=== PATIENT | male | born 1930 | race Caucasian/White ===

== ENCOUNTER 2016-07-13 10:55 | Emergency (ER) | payer MEDICARE, OTHER ==
[2016-03-30 13:06] VITALS: BMI 38.0
[~2016-07-13 10:55] MED LIST: ATIVAN0.5 MG PO; BAYER CHEWABLE81 MG PO; CALTRATE 600 M600 M1 PO; COREG12.5 MG PO; DEPAKOTE ER500 MG PO; DULCOLAX5 MG PO; GALZIN25 MG; GALZIN25 MG PO; GARLIC1 CAP PO; GLUCOPHAGE500 MG PO; GLUCOTROL ER2.5 MG PO; HCTZ25 MG PO; HYTRIN5 MG PO; IPRAT-ALBUT 0.5-3 ML INH; K-TAB10 MEQ PO; LASIX20 MG PO; LASIX40 MG PO; LOPRESSOR25 MG PO; MAG-OX 400 MG400 MG PO; MUCINEX600 MG PO; NORVASC5 MG PO; OMEPRAZOLE20 M1 PO; PERPHENAZINE2 MG PO; PHENERGAN25 M1 PO; PROTONIX40 MG PO; RESTORIL15 MG PO; SEROQUEL25 MG PO; SYMBICORT 16010.2 GM INH; TRIGLIDE160 MG PO; VIBRAMYCIN 100100 MG PO; VIIBRYD10 MG PO; VITAMIN B-121000 MCG PO; VITAMIN D5000 UNIT PO; XANAX1 MG PO; ZESTORETIC 10/11 TAB; ZESTORETIC 10/11 TAB PO; ZOCOR20 MG PO; ZOLOFT100 MG PO
== END 2016-07-13 13:13 | disposition home or self-care (01) ==
LOC: D.ER 10:55
DX: M54.5 Low back pain (principal); S39.012A Strain of muscle, fascia and tendon of lower back, initial encounter; W18.11XA Fall from or off toilet without subsequent striking against object, initial encounter; Y93.89 Activity, other specified; Y92.121 Bathroom in nursing home as the place of occurrence of the external cause; F32.9 Major depressive disorder, single episode, unspecified; E11.9 Type 2 diabetes mellitus without complications; I10 Essential (primary) hypertension

== ENCOUNTER 2016-10-01 11:38 | Inpatient (IN) | payer MEDICARE, OTHER ==
[~2016-10-01] VITALS: Ht 172.7 cm; Wt 119.0 kg
--- NOTE | 2016-10-01 11:45 | NUR ---
PATIENT ADMITTED FROM [facility] HE HAS BEEN AGGRESSIVE, HE EVEN HIT HIS AND STAFF. HE IS IN A W/C, HE IS DISORGANIZED AND DELUSIONAL. HE HAS POOR SHORT TERM MEMORY RECALL. HE IS ON 2L/M OXYGEN PER N/C. HE DOES HAVE EDEMA IN BILATERAL LOWER LEGS. HE AND HIS SPOUSE SAY HE DOES HAVE THIS EDEMA MOST OF THE TIME AND HE IS ON LASIX. PATIENT IS CONFUSED, HE IS CALLING OUT LOUDLY. HE WEARS GLASSES, HE IS NOT ABLE TO AMBULATE AND HE HAS SAID HE HAS FALLEN 6-7 TIMES.
[2016-10-01 11:54] VITALS: BP 115/77; BMI 39.8
[2016-10-01 12:04] VITALS: BMI 39.8
[2016-10-01] MEDS ORDERED: ASPIRIN325 MG PO (13:01)
[2016-10-01] MEDS ORDERED: ULTRAM50 MG PO (13:02)
[2016-10-01] MEDS ORDERED: DEPAKOTE ER250 MG PO (13:06)
[2016-10-01] MEDS ORDERED: DEPAKOTE ER500 MG PO (13:08)
[2016-10-01] MEDS ORDERED: NUEDEXTA 20-101 EACH PO (13:09)
[2016-10-01] MEDS ORDERED: LIPITOR10 MG PO (13:10)
[2016-10-01] MEDS ORDERED: GALZIN25 MG PO (13:10)
[2016-10-01] MEDS ORDERED: K-TAB10 MEQ PO (13:11)
[2016-10-01] MEDS ORDERED: FLOMAX0.4 MG PO (13:11)
[2016-10-01] MEDS ORDERED: COREG12.5 MG PO (13:12)
[2016-10-01] MEDS ORDERED: MUCUS RELIEF400 MG PO (13:13)
[2016-10-01] MEDS ORDERED: BISACODYL5 MG PO (13:14)
[2016-10-01] MEDS ORDERED: VITAMIN B-12500 MC1 PO (13:15)
[2016-10-01] MEDS ORDERED: VITAMIN D5000 UNIT PO (13:16)
[2016-10-01 13:59] LABS: BASOPHILS 0.5 % (0-2); HEMATOCRIT 36.6 % (42.0-54.0); HEMOGLOBIN 11.6 g/dL (13.5-17.5); IMMATURE GRANULOCYTES 0.2 % (0-5); MCH 31.1 pg (26.0-34.0); MCHC 31.7 g/dL (31.0-37.0); MCV 98.1 fL (80.0-100.0); MEAN PLATELET VOLUME 11.6 fL (7.4-10.4); MONOCYTES 12.8 % (2-11); NEUTROPHILS 55.5 % (40-80); RBC 3.73 10x6/uL (4.20-6.10); RDW 16.1 % (11.5-14.5); WBC 5.5 10x3/uL (4.8-10.8)
[2016-10-01 14:01] LABS: PLATELET COUNT 111 10x3/uL (130-400)
[2016-10-01 14:04] LABS: HEMOGLOBIN A1C 6.3 % (4.8-6.0)
[2016-10-01 14:41] LABS: ANION GAP 14.8 mmol/L (8-16); BILIRUBIN - TOTAL 1.02 mg/dL (0.2-1.3); CALCIUM 8.4 mg/dL (8.5-10.1); CARBON DIOXIDE 28.9 mmol/L (21.0-32.0); CHOL - HDL RATIO 5.1 ratio (2.3-4.9); CREATININE - SERUM 1.7 mg/dL (0.6-1.3); LDL-HDL RATIO 2.7 ratio (1.5-3.5); POTASSIUM - SERUM 3.7 mmol/L (3.5-5.1); PROTEIN - SERUM 7.1 g/dL (6.4-8.2); THYROID STIMULATING HORMONE 6.02 uIU/mL (0.36-3.74); VALPROIC ACID (DEPAKOTE) 43.1 ug/mL (50.0-100.0)
--- NOTE | 2016-10-01 16:58 | NUR ---
PATIENT DOES NOT FOLLOW DIRECTION WELL, HE IS STARING BLANKLY, HE HAS YELLED FOR CEASAR, CESIA OR RACHEL SINCE HE CAME IN TODAY. HE CONTINUES TO TRY TO STAND. 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 PATIENT IS UNSTEADY AND HAS FALLEN MULTIPLE TIMES RECENTLY. PATIENT STOOD AGAIN, MANSI ATTEMPTED TO REDIRECT, PATIENT BECAME AGITATED AND SWUNG AND HIT HER IN THE BREAST, PRN ATIVAN 0.5 MG PO GIVEN NOW. WILL MONITOR.
--- NOTE | 2016-10-01 17:50 | NUR ---
PATIENT IS EATING AND HE IS NOT FOCUSED ON TRYING TO STAND HE IS CALMER AND HAS BEEN SITTING AT THE TABLE WITHOUT INCIDENT.
[2016-10-01 19:54] VITALS: BP 146/99
--- NOTE | 2016-10-01 21:00 | NUR ---
REPORT RECEIVED AND CARE ASSIMED. RESTLESS AND UNCOOPERATIVE WITH CARE. ASSESSMENT COMPLETED PER FLOW SHEET. MEDICATION COMPLIANT CRUSHED IN APPLESAUCE. FALL PRECAUTIONS MAINTAINED. CONTINUE PLAN OF CARE AND MONITOR FOR SAFETY.
--- NOTE | 2016-10-02 01:40 | NUR ---
HALDOL 2 MG PO GIVEN FOR ANXIETY AND AGITATION. YELLING OUT LOUDLY.
--- NOTE | 2016-10-02 04:00 | NUR ---
HAS ATTEMPTED TO GET OUT OF BED UNASSISSTED SEVERAL TIMES TONIGHT. HE TAKES OFF HIS OXYGEN AND GETS SHORT OF BREATH.
[2016-10-02 07:22] LABS: APPEARANCE CLEAR (CLEAR); BILIRUBIN NEGATIVE (NEGATIVE); COLOR YELLOW (YELLOW); GLUCOSE NEGATIVE (NEGATIVE); KETONE NEGATIVE (NEGATIVE); LEUKOCYTE ESTERASE NEGATIVE (NEGATIVE); NITRITE NEGATIVE (NEGATIVE); PROTEIN NEGATIVE (NEGATIVE); UROBILINOGEN NORMAL (NORMAL)
[2016-10-02 07:29] LABS: FOLATE (FOLIC ACID) - SERUM 8.3 ng/mL (>3.0)
[2016-10-02 09:47] VITALS: BP 137/81
[2016-10-02 10:17] LABS: VITAMIN D 25 HYDROXY 68.1 ng/mL (30.0-100.0)
--- NOTE | 2016-10-02 13:37 | PSY ---
PATIENT NAME:CESIA ADAMSON MEDICAL RECORD: [id number] : 34 LOCATION:[facility] ADMISSION DATE: 10/01/16 ACCOUNT: [id number] PSYCHIATRIC EVALUATION DATE OF EVALUATION: 10/01/16 Psychiatric Evaluation IDENTIFYING DATA: The patient is 86 years old and he is admitted to the hospital on a voluntary basis. CHIEF COMPLAINT: Aggression. HISTORY OF PRESENT ILLNESS: The patient is a resident at a local long-term. He was admitted today because of aggression and threatening at the long-term. He has only been here a couple of hours. Unfortunately, the patient is a very poor historian. He says he does not live in a long-term and that he lives in his house in [place], [place]. 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 Apparently, he has been pretty delusional, as well as aggressive at the long-term and they tried to redirect him without success. The patient apparently does have a spouse, although I have not spoken with her. Apparently, she has related information that he has a history of bipolar disorder. He has also been very difficult for the nurses at the long-term to provide him with care, resisting and agitated when they try to do so. PAST MEDICAL HISTORY: Significant for diabetes, gastroesophageal reflux disease, constipation and hyperlipidemia. PAST PSYCHIATRIC HISTORY: Significant for reported history of bipolar disorder, although the details of this are unknown. FAMILY HISTORY: Unknown. 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 I am not sure how or why or when he made his way to [place] and he cannot tell me at this point. He does indicate that he is not a and denies very adamantly that he has ever consumed alcohol or taken drugs. MENTAL STATUS EXAMINATION: The patient is awake, alert and oriented to person only. His mood is anxious. His affect is constricted. Thought processes are circumstantial. Memory, concentration and abstraction abilities are moderately impaired. He denies any current intent to harm himself or others as well as overt psychotic symptoms. ASSETS: Supportive family members. LIABILITIES: Limited insight. 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 AXIS II: None. AXIS III: Diabetes, hypertension and hyperlipidemia. AXIS IV: Moderate stressors. AXIS V: Global assessment of functioning is 30. PLAN: At this time, the patient is admitted to the hospital secondary to aggressive and delusional behavior associated with a dementing illness. He will be comprehensively evaluated and treated with both mood-stabilizing and memory-enhancing medications as deemed appropriate. His long-term prognosis is guarded. TRANSINT:[id number] Voice Confirmation ID: [id number] DOCUMENT ID: [id number] MIREILLE GREWAL MD at 1337 CC: [id number] DICTATION DATE: 10/01/16 1455 SECURITY SPECIALIST: 10/01/16 1555 ADM IN [place] [id number] [place] [id number]
[2016-10-02 13:38] VITALS: BMI 39.6
--- NOTE | 2016-10-02 13:45 | NUR ---
B) PATIENT IS CONFUSED, HE DOES NOT FOLLOW DIRECTION WELL. I) PROVIDE PRESCRIBED MEDS. R) PATIENT IS COMPLIANT WITH MEDS. P) CONTINUE POC.
--- NOTE | 2016-10-02 18:27 | NUR ---
PATIENT IS RESTLESS, NOT REDIRECTABLE, HE HAS HAD DINNER, ICE CREAM, WANTS TO STAND AND WALK AND HE IS UNABLE, PATIENT ADMITS TO BEING ANXIOUS. ATIVAN 0.5 MG PO GIVEN NOW.
--- NOTE | 2016-10-02 19:00 | NUR ---
PATIENT LESS ANXIOUS, HE IS MORE REDIRECTABLE, GETTING SLEEPY.
[2016-10-02 19:30] VITALS: BP 136/76
--- NOTE | 2016-10-03 02:49 | NUR ---
B) Recieved patient in the day room, alert and oriented to self, anxious and restless, I) Administered perscribed medications, monitored for falls and safety, R) Medication compliant, P) Continue plan of care.
--- NOTE | 2016-10-03 06:56 | PN ---
PATIENT:CESIA ADAMSON MEDICAL RECORD: [id number] LOCATION:[facility] ADMISSION DATE: 10/01/16 PROGRESS NOTE DATE OF SERVICE: 10/02/2016 SUBJECTIVE: The patient's case was discussed with staff. He has no new complaint. OBJECTIVE: The patient required p.r.n. medication last night and he has been significantly agitated. He has clear evidence of severe cognitive impairment. ASSESSMENT: No change in diagnoses. PLAN: Current medicines have been reviewed and will be maintained. I am going to change his antipsychotic from Trilafon to Zyprexa because of its use in individuals, who are bipolar. TRANSINT:[id number] Voice Confirmation ID: [id number] DOCUMENT ID: [id number] MIREILLE GREWAL MD at 0656 CC: [id number] DICTATION DATE: 10/02/16 1419 MOLECULAR PATHOLOGIST: 10/02/16 2330 ADM IN [place] [id number] [place] [address]
[2016-10-03 11:50] VITALS: BP 155/107
--- NOTE | 2016-10-03 12:01 | NUR ---
B) PATIENT IS SLEEPY THIS AM, HE HAS BEEN PLEASANT, HE IS CONFUSED, HE HAS NOT SHOWN AGGRESSION, HE HAS NOT SHOWN ANXIETY AT THIS TIME. PATIENT DID GET UP AND WALK WELL WITH P.T. I) PROVIDE PRESCRIBED MEDS. R) PATIENT IS COMPLIANT WITH MEDS. P) CONTINUE POC.
[2016-10-03 19:30] VITALS: BP 128/87
--- NOTE | 2016-10-03 23:16 | NUR ---
B) Recieved patient in the day room alert and oriented to self, wanting to call , wanting to go home, restless, yelling out that he was being held against his will, I) Administered perscribed medications, PRN Ativan 0.5 mg IM and Haldol 2 mg IM given at 2100 for anxiety, monitored for falls and safety, R) Medication compliant, resting quietly now, P) Continue plan of care.
[2016-10-04 07:00] VITALS: BP 123/63
[2016-10-04 09:36] VITALS: Ht 172.7 cm; Wt 119.0 kg
--- NOTE | 2016-10-04 09:38 | NUR ---
ORIENTED TO PERSON ONLY. DEMANDING AT TIMES. REDIRECTED AND REORIENTED NEEDED. NO AGGRESSION NOTED. PT IS ANXIOUS SO COPING SKILL USED TO HELP PT RELAX. PT ABLE TO EXPRESS NEEDS BUT YELLS OUT WHEN HE DOES NOT GET IMMEDIATE ATTENTION. FALL PRECAUTIONS MAINTAINED. MEGHAN PAD IN PLACE. ELEVATED PT LEGS DUE TO EDEMA AND REDNESS. WILL CONTINUE TO MONITOR AND CONTINUE WITH PLAN OF CARE.
[2016-10-04 19:30] VITALS: BP 124/72
--- NOTE | 2016-10-04 20:48 | NUR ---
RECEIVED IN DAYROOM. SITTING IN WHEELCHAIR. O2 AT 2 L/M VIA NC. CALM AND COOPERATIVE WITH CARE AND ASSESSMENTS. CONFUSED. NO SIGNS OF AGGRESSION. REDIRECT AND REORIENT NEEDED. CONTINUES TO SIT IN WHEELCHAIR. CONTINUE PLAN OF CARE
[2016-10-05 07:00] VITALS: BP 162/99
--- NOTE | 2016-10-05 12:13 | NUR ---
Alert and oriented to self only, cooperative with am assessment. Redirected and reoriented as need. Demanding at time and will yell out and attempt to get out of chair if not assisted immediately. [place] pad in chair. Safety maintained. Continue to monitor, continue plan of care.
[2016-10-05 12:30] VITALS: BP 115/72
--- NOTE | 2016-10-05 14:10 | PN ---
PATIENT:CESIA ADAMSON MEDICAL RECORD: [id number] LOCATION:[facility]112 ADMISSION DATE: 10/01/16 PROGRESS NOTE DATE OF SERVICE: 10/03/2016 SUBJECTIVE: The patient's case was discussed with staff. He has no new complaint. OBJECTIVE: The patient is in good behavioral control with limited insight about his condition. He is severely impaired intellectually. ASSESSMENT: No change in diagnoses. PLAN: The patient did sleep better last night. He is certainly a high fall risk and is very unsteady on his feet and despite almost constant redirection to not stand up or try to move about unassisted, he cannot retain the information and is trying to get up. I am going to hold his current medicines as they are clearly having some effect as he did sleep last night, it may be necessary to reduce the dose slightly since he did sleep over 9 hours, but that may be related to the fact that he had not slept well for several days prior. TRANSINT:[id number] Voice Confirmation ID: [id number] DOCUMENT ID: [id number] MIREILLE GREWAL MD at 1410 CC: [id number] DICTATION DATE: 10/03/16 1205 INSIDE SALES COORDINATOR: 10/03/162053 ADM IN [place] [address] [place] [address]
[2016-10-05 19:30] VITALS: BP 148/95
--- NOTE | 2016-10-05 19:41 | NUR ---
RECEEIVED IN DAYROOM. SITTING AT TABLE WITH STAFF AND PEERS. SOCALIZING WITH OTHERS. CONFUSED. WANTING TO LEAVE UNIT. CALM AND COOPERATIVE WITH CARE AND ASSESSMENTS. NO SIGNS OF AGGRESSION. REDIRECT AND REORIENT NEEDED. CONTINUES TO SIT IN CHAIR. CONTINUE PLAN OF CARE
[2016-10-06 07:00] VITALS: BP 151/88
--- NOTE | 2016-10-06 10:20 | NUR ---
Alert and oriented to self only, has no insight to place and situation. Redirect and reorient as need. No evidence of reorientation, patient is demanding at times. No aggression or agitation. No delusions noted. Door alarm in chair. Safety maintained. Continue with plan of care and monitoring.
[2016-10-06] MEDS ORDERED: ZYPREXA5 MG PO (14:20)
[2016-10-06] MEDS ORDERED: NAMENDA5 MG PO (14:20)
--- NOTE | 2016-10-06 14:52 | PN ---
PATIENT:CESIA ADAMSON MEDICAL RECORD: [id number] LOCATION:[facility] ADMISSION DATE: 10/01/16 PROGRESS NOTE DATE OF SERVICE: 10/05/2016 SUBJECTIVE: The patient's case was discussed with staff. He has no new complaint. OBJECTIVE: The patient denies intent to harm himself or others. He generally tolerates his medicines well. ASSESSMENT: No change in diagnoses. PLAN: Current medicines and therapies have been reviewed and will be maintained. Long-term prognosis is guarded. I am going to start the patient on Namenda at a dose of 2.5 mg twice daily. TRANSINT:[id number] Voice Confirmation ID: [id number] DOCUMENT ID: [id number] MIREILLE GREWAL MD at 1452 CC: [id number] DICTATION DATE: 10/05/16 1440 BUILDING TECH: 10/06/16 0154 ADM IN [place] [id number] [place] [address]
[2016-10-06 19:30] VITALS: BP 114/77
--- NOTE | 2016-10-06 19:55 | NUR ---
RECEIVED IN DAYROOM. SITTING IN A CHAIR WITH PEERS AT HIS SIDE. SMILES AT TIMES. IN GOOD SPIRITS. CALM AND COOPERATIVE WITH CARE AND ASSESSMENTS. NO SIGNS OF AGGRESSION. ENCOURAGE TO EXPRESS NEEDS. CONTINUE PLAN OF CARE
[2016-10-07 07:55] VITALS: BP 134/84
--- NOTE | 2016-10-07 16:42 | NUR ---
Received this am, alert and oriented to name only. Calm and cooperative with assessment. Redirect and reorient as need. No evidence of reorientation. No aggression. Safety maintained. Continue plan of care.
--- NOTE | 2016-10-07 17:34 | PN ---
PATIENT:CESIA ADAMSON MEDICAL RECORD: [id number] LOCATION:[facility]112 ADMISSION DATE: 10/01/16 PROGRESS NOTE DATE OF SERVICE: 10/06/2016 SUBJECTIVE: The patient's case was discussed with staff. He has no new complaint. OBJECTIVE: The patient is in good behavioral control with limited insight about his condition. ASSESSMENT: No change in diagnoses. PLAN: Current medicines and therapies have been reviewed and will be maintained. Long-term prognosis is guarded. Brief supportive and educational interventions were made. TRANSINT:[id number] Voice Confirmation ID: [id number] DOCUMENT ID: [id number] MIREILLE GREWAL MD at 1734 CC: [id number] DICTATION DATE: 10/06/[address] CLERK: 10/06/16 2348 ADM IN [place] [id number] [place] [address]
[2016-10-07 20:00] VITALS: BP 148/81
--- NOTE | 2016-10-08 01:22 | NUR ---
B) Recieved patient in the day room, alert and oriented to self, calm and cooperative with care and assessment, I) Administered perscribed medications, monitored for falls and safety, R) Medication compliant. patient had difficulty falling to sleepP) Continue plan of care.
--- NOTE | 2016-10-08 11:03 | NUR ---
ORIENTED TO PERSON ONLY. REDIRECTED NEEDED. PT ON 2 L NC. PT IS DISCHARGING TODAY BACK TO [facility]. DISCHARGE PAPERWORK FAXED TO [facility] AND REPORT CALLED. VSS. FALL PRECAUTIONS MAINTAINED. WILL CONTINUE TO MONITOR AND CONTINUE WITH PLAN OF CARE.
--- NOTE | 2016-10-08 12:00 | NUR ---
REPORT CALLED TO [facility], FAXED D/C ORDER AND MAR, PATIENT LEAVING NOW WITH THEIR FINANCIAL ECONOMIST, O2 TANK AND BELONGINGS ACCOUNTED FOR AND PACKED. PATIENT OFF THE UNIT NOW.
--- NOTE | 2016-10-08 13:50 | PN ---
PATIENT:CESIA ADAMSON MEDICAL RECORD: [id number] LOCATION:[facility] ADMISSION DATE: 10/01/16 PROGRESS NOTE DATE OF SERVICE: 10/07/2016 SUBJECTIVE: The patient's case was discussed with staff. He has no new complaint. OBJECTIVE: The patient is quite confused and at times significantly and seriously agitated. He has limited insight about his situation. ASSESSMENT: No change in diagnoses. PLAN: Current medicines have been reviewed and will be maintained. His long-term prognosis is guarded. I anticipate he can be transitioned out of the hospital soon if this level of improvement is maintained. TRANSINT:[id number] Voice Confirmation ID: [id number] DOCUMENT ID: [id number] MIREILLE GREWAL MD at 1350 CC: [id number] DICTATION DATE: 10/07/16 173 DIRECTOR DAY CARE CENTER: 10/08/16 0236 DIS IN 10/08/16 [facility] [address] [place] [address]
== END 2016-10-08 12:05 | DRG 57 ==
LOC: D.PSYCH 11:38
PROVIDERS: ADMIT Psychiatry & Neurology Psychiatry
DX: G30.1 Alzheimer's disease with late onset (principal); F02.81 Dementia in other diseases classified elsewhere, unspecified severity, with behavioral disturbance; E11.9 Type 2 diabetes mellitus without complications; I11.0 Hypertensive heart disease with heart failure; I50.9 Heart failure, unspecified; E78.5 Hyperlipidemia, unspecified; J44.9 Chronic obstructive pulmonary disease, unspecified; Z86.73 Personal history of transient ischemic attack (TIA), and cerebral infarction without residual deficits; F41.8 Other specified anxiety disorders; I25.10 Atherosclerotic heart disease of native coronary artery without angina pectoris; Z95.5 Presence of coronary angioplasty implant and graft; D64.9 Anemia, unspecified; E03.9 Hypothyroidism, unspecified; N40.0 Benign prostatic hyperplasia without lower urinary tract symptoms; K21.9 Gastro-esophageal reflux disease without esophagitis

== ENCOUNTER 2016-11-07 17:17 | Inpatient (IN) | payer MEDICARE, OTHER ==
[~2016-11-07] VITALS: Ht 172.7 cm; Wt 112.5 kg
[~2016-11-07 17:17] MED LIST changes: -ATIVAN1 MG PO; -CEFTRIAXONE1 G/VIAL IM; -GLIPIZIDE10 MG PO; -IPRAT-ALBUT 0.5-3 ML UPD; -LEVAQUIN500 MG PO; -NORVASC10 MG PO; -OYSCO 500+D TAB1 TAB PO; -POT CL MICRO; -TEMAZEPAM30 MG PO
--- NOTE | 2016-11-07 18:00 | NUR ---
RECEIVED TO ROOM 1123 VIA WHEELCHAIR FROM EMERGENCY DEPT. ACCOMPANIED BY HOSPITAL STAFF ONLY. DX: ALTERED MENTAL STATUS. HIS FED HIM DINNER IN ER AND WILL RETURN TOMMORROW [facility] VISITATIOM. WILL MONITOR FOR SAFETY AND FALL PRECAUTIONS. HE IS CURRENTLY A PATIENT AT [facility], AND HE THREATENED TO HARM HIMSELF SO HE COULD GET OUT OF SNF TODAY. ORACLE DATABASE CONSULTANT SAW HIM STAND UP FROM WHEELCHAIR AND BROKE HIS FALL HE FELL DOWN ON LEFT ARM. HE HAS ONLY A SMALL SKIN TEAR TO LEFT ELBOW, NO BRUISES NOTED. WILL CONTINUE TO MONITOR.
[2016-11-07 19:30] VITALS: BP 148/76
[2016-11-07] MEDS ORDERED: ASPIRIN325 MG PO (20:28)
[2016-11-07] MEDS ORDERED: NORVASC10 MG PO (20:29)
[2016-11-07] MEDS ORDERED: LOPRESSOR25 MG PO (20:29)
[2016-11-07] MEDS ORDERED: GLIPIZIDE10 MG PO (20:30)
[2016-11-07] MEDS ORDERED: TEMAZEPAM30 MG PO (20:33)
[2016-11-07] MEDS ORDERED: POT CL MICRO (20:40)
[2016-11-07] MEDS ORDERED: ATIVAN1 MG PO (20:43)
--- NOTE | 2016-11-07 21:47 | NUR ---
RECEIVED IN BEDRROM. ASSIST TO TRANSFERE TO BED. TOTAL ASSIST TO TRANSFERE. CALM AND COOPERATIVE WITH CARE AND ASSESSMENTS. NO SIGNS OF AGGRESSION. TOOK PM MEDS ORDERED. REDIRECT AND REORIENT NEEDED. RESTING IN BED EYS CLOSED AT THIS TIME. CONTINUE PLAN OF CARE
[2016-11-07] MEDS ORDERED: CEFTRIAXONE1 G/VIAL IM (23:12)
[2016-11-07] MEDS ORDERED: LEVAQUIN500 MG PO (23:14)
[2016-11-07] MEDS ORDERED: ULTRAM50 MG PO (23:17)
[2016-11-07] MEDS ORDERED: IPRAT-ALBUT 0.5-3 ML UPD (23:20)
[2016-11-07] MEDS ORDERED: TRIGLIDE160 MG PO (23:24)
[2016-11-07] MEDS ORDERED: OYSCO 500+D TAB1 TAB PO (23:29)
[2016-11-08 01:19] VITALS: BP 148/76
[2016-11-08 07:00] VITALS: BP 137/101
[2016-11-08 07:22] LABS: CHOL - HDL RATIO 6.6 ratio (2.3-4.9); LDL-HDL RATIO 3.6 ratio (1.5-3.5)
--- NOTE | 2016-11-08 10:00 | NUR ---
B) AWAKE AND ALERT THIS AM. ORIENTED TO PERSON ONLY. CALM AND COOPERATIVE WITH ASSESSMENT. SITTING IN RECLINE AND TRIES TO GET UP UNASSISTED. VSS. I) ADMINISTERED PRESCRIBED MEDICATIONS. REDIRECT AND REORIENT PRN. R) COMPLIANT WITH TAKING MEDS CRUSHED IN APPLESAUCE. MONITOR FOR SAFETY AND FALL PRECAUTIONS. P) WILL CONTIMUE PLAN OF CARE.
[2016-11-08 19:30] VITALS: BP 146/98
--- NOTE | 2016-11-08 20:14 | NUR ---
RECEIVED IN HALLWAY. SITTING IN RECLINING CHAIR. VERY CONFUSED. ATTEMPTS TO STAND WITHOUT ASSIST. CALM AND COOPERATIVE WITH CARE AND ASSESSMENTS. REDIRECT AND REORIENT NEEDED FOR SAFETY. CONTINUES TO REST IN RECLINER AT NURSES STATION. CONTINUE PLAN OF CARE
[2016-11-09 07:00] VITALS: BP 141/101
[2016-11-09 10:00] VITALS: BMI 37.8
--- NOTE | 2016-11-09 15:54 | NUR ---
RECEIVED IN [facility] THIS AM. ORIENTED TO PERSON ONLY. CALM AND COOPERATIVE WITH ASSESSMENT. ADMINISTERED PRESCRIBED MEDS. VSS COMPLIANT WITH TAKING MEDS. REDIRECT AND REORIENT NEEDED. WILL CONTINUE POC.
[2016-11-09 19:50] VITALS: BP 133/48; BP 154/82
--- NOTE | 2016-11-09 21:10 | NUR ---
RECEIVED IN HALLWAY. SITTING IN RECLINER. VERY CONFUSED. CALM AND COOPERATIVE WITH CARE AND ASSESSMENTS. REDIRECT AND REORIENT NEEDED. CONTINUES TO REST IN RECLINER EYES CLOSED. CONTINUE PLAN OF CARE
--- NOTE | 2016-11-09 21:39 | NUR ---
RECEIVED IN HALLWAY. SITTING IN RECLINER. VERY CONFUSED. CALM AND COOPERATIVE WITH CARE AND ASSESSMENTS. REDIRECT AND REORIENT NEEDED. CONTINUES TO REST IN RECLINER WITH EYES CLOSED. CONTINUE PLAN OF CARE
[2016-11-10 07:00] VITALS: BP 165/100
--- NOTE | 2016-11-10 17:00 | NUR ---
SEE ASSESSMENT FLOW SHEET FOR DETAILS.
[2016-11-10 19:50] VITALS: BP 137/95
--- NOTE | 2016-11-10 23:27 | NUR ---
RECEIVED IN HALLWAY. SITTING IN RECLINING CHAIR. VERY CONFUSED. CALM AND COOPERATIVE WITH CARE AND ASSESSMENT. ATTEMPTS TO STAND WITHOUT ASSIST AT TIMES. REDIRECT AND REORIENT NEEDED. RESTING IN RECLINER EYES CLOSED AT THIS TIME. CONTINUE PLAN OF CARE
--- NOTE | 2016-11-11 09:00 | NUR ---
B) rec'd pt in dining room for morning med pass, pt alert, pleasant mood, no aggression noted. I) Meds admin per orders, group therapy provided. R) Med compliant, jesus meds well with no s/s adverse reaction, present for group, cooperative. P) Cont current plan of care including meds and group therapy.
[2016-11-11 10:44] VITALS: BP 139/92
[2016-11-11 14:23] LABS: RAPID PLASMA REAGIN Non Reactive (Non Reactive)
[2016-11-11 19:37] VITALS: BP 115/79
--- NOTE | 2016-11-12 00:58 | NUR ---
B) Recieved patient in the hallway alert and oriented to self, calm and cooperative , no behaviors noted, I) Administered perscribed medications, monitored for safety, R) Medication compliant, friendly and pleasant, P) Continue plan of care.
[2016-11-12 07:47] VITALS: BP 146/75
--- NOTE | 2016-11-12 11:12 | NUR ---
B) PATIENT IS AWAKE AND ALERT, BUT HE IS CONFUSED, HE KNOWS HIS NAME, BUT NOT WHERE HE IS AND HE CONTINUES TO YELL OUT AND SAYS "CALL MY " HE WANTS TO LEAVE OUT OF HERE. I) PROVIDE PRESCRIBED MEDS. R) PATIENT IS COMPLIANT WITH MEDS. HE HAS NOT SHOWN ANY AGGRESSION TODAY. P) CONTINUE POC.
[2016-11-12 15:55] VITALS: Ht 172.7 cm; Wt 112.5 kg
[2016-11-12 19:00] VITALS: BP 140/80
--- NOTE | 2016-11-13 01:22 | NUR ---
B) recieved patient in the day room, alert and oriented to name, very confused and restless at times, frequently tries to stand unassisted, I) Administered perscribed medications, monitored for falls and safety, redirected as needed, R) Medication compliant, restless and not sleepingP) Continue plan of care.
[2016-11-13 08:20] LABS: FOLATE (FOLIC ACID) - SERUM 9.5 ng/mL (>3.0)
[2016-11-13 09:07] VITALS: BP 126/79
--- NOTE | 2016-11-13 10:29 | NUR ---
B) PATIENT IS AWAKE EARLY THIS AM AND THROUGH BREAKFAST. HE DOES KEEP ASKING TO BACK TO BED, BUT HE'LL YELL OUT "I NEED TO GO TO THE BATHROOM" STAFF WILL GO TO TAKE HIM AND HE'LL SAY "NO, I NEED TO GO TO BED" PATIENT CAN STAND WITH STAFF ASSIST. I) PROVIDE PRESCRIBED MEDS. R) PATIENT IS COMPLIANT WITH MEDS AND UNIT MILIEU. P) CONTINUE POC.
--- NOTE | 2016-11-13 11:09 | NUR ---
PATIENT HAS A REDDENED BOTTOM, BEAUDREAUX BUTT PASTE APPLIED AFTER HIS SHOWER AND A TIN MAT APPLIED TO HIS CHAIR.
[2016-11-13 19:30] VITALS: BP 139/76
--- NOTE | 2016-11-14 00:46 | NUR ---
B) Recieved patient in the day room, alert and oriented to self, aware of surroundings, yelling out to 'shut up' to other patients talking in loud voices, I) Administered perscribed medications, monitored for safety, R) Medication compliant, resting quietly in bed now, P) Continue plan of care.
[2016-11-14 08:11] VITALS: BP 148/93
--- NOTE | 2016-11-14 13:42 | NUR ---
B) PATIENT IS AWAKE AND ALERT THIS AM, HE HAD A LOW O2 SAT AND HE WAS PLACED ON 02 AT 2 PER N/C FOR A FEW HOURS, RECHECKED O2 SAT AFTER LUNCH AMD OFF OF O2 HE IS SATTING AT 95%. PATIENT CAN STAND WITH STAFF ASSIST. PATIENT HAS SAID ABOUT EVERY 5 TO 10 MINUTES. "I WANT A SHAVE". PATIENT DID GET A SHAVE. I) PROVIDE PRESCRIBED MEDS. R) PATIENT IS COMPLIANT WITH MEDS AND HE IS REDIRECTABLE AND HE HAS NOT SHOWN ANY AGGRESSION TODAY.
[2016-11-14 19:30] VITALS: BP 128/64
--- NOTE | 2016-11-14 19:33 | NUR ---
RECEIVED IN HALLWAY. OUTSIDE OF NURSES STATION. INTRUSIVE AT TIMES. CALM AND COOPERATIVE WITH CARE AND ASSESSMENTS. REDIRECT AND REOPRIENT NEEDED. RESTING IN BED EYES OPEN AT THIS TIME. CONTINUE PLAN OF CARE
--- NOTE | 2016-11-14 19:37 | NUR ---
RECEIVED IN HALLWAY. SITTING OUTSIDE OF NURSES STATION IN RECLINING CHAIR. RESTLESS IN CHAIR AT TIMES. CALM AND COOPERATIVE WITH CARE AND ASSESSMENTS. VERY CONFUSED. REDIRECT AND REORIENT NEEDED. CONTINUES TO SIT IN RECLINER. CONTINUE PLAN OF CARE
[2016-11-15 07:00] VITALS: BP 153/110
--- NOTE | 2016-11-15 17:41 | NUR ---
B) PATIENT IS CONFUSED, HE KNOWS HIS NAME, BUT NOT THE PLACE OR TIME. PATIENT SAID "ARE WE IN [place]" PATIENT IS WHEEZING A LITTLE, BUT HE DOES HAVE BILATERAL LOWER EDEMA AND DR. BRO ORDERED LASIX 2O MG. I) PROVIDE PRESCRIBED MEDS. R) PATIENT IS COMPLIANT WITH MEDS AND UNIT MILIEU. PATIENT NEEDS STAFF ASSIST TO STAND AND TRANSFER. PATIENT DOES USUALLY LET STAFF KNOW HE NEEDS TO VOID OR HAVE A BM. PATIENTS SPOUSE DID VISIT AND HE SAID HE HAD A NICE VISIT. P) CONTINUE POC.
[2016-11-15 19:30] VITALS: BP 153/101
--- NOTE | 2016-11-15 19:55 | NUR ---
RECEIOVED IN HALLWAY. SITTING IN A RECLINER OUTSIDE OF NURSES STATION. ATTEMPTS TO STAND WITHOUT ASSIST. VERY CONFUSED. CALM AND COOPERATIVE WITH CARE AND ASSESSMENT. REDIRECT AND REORIENT NEEDED. CONTINUES TO REST IN RECLINER. CONTINUE PLAN OF CARE
[2016-11-16 07:00] VITALS: BP 128/95
--- NOTE | 2016-11-16 09:00 | NUR ---
RECEIVED IN HALLWAY SITTING IN RECLINER, RESTING WITH EYES CLOSED. VSS. NO AGGRESSION NOTED. CALM AND COOPERATIVE WITH ASSESSMENT. ADMINISTERED PRESCRIBED MEDS. COMPLIANT WITH TAKING MEDS. CONTINUE POC.
[2016-11-16 19:45] VITALS: BP 139/69
--- NOTE | 2016-11-16 22:06 | NUR ---
RECEIVED IN HALLWAY. SITTING IN RECLINER OUTSIDE OF NURSES STATION. VERY CONFUSED. YELLING OUT. CALM AND COOPERATIVE WITH CARE AND ASSESSMENT. REDIRECT AND REORIENT NEEDED. CONTINUES TO SIT IN RECLINER. CONTINUE PLAN OF CARE
[2016-11-17 06:01] LABS: ANION GAP 12.2 mmol/L (8-16); CALCIUM 8.2 mg/dL (8.5-10.1); CARBON DIOXIDE 27.4 mmol/L (21.0-32.0); CREATININE - SERUM 1.1 mg/dL (0.6-1.3); POTASSIUM - SERUM 3.6 mmol/L (3.5-5.1)
[2016-11-17 08:00] VITALS: BP 145/95
[2016-11-17] MEDS ORDERED: LASIX20 MG PO (11:29)
--- NOTE | 2016-11-17 13:00 | NUR ---
B) AWAKE AND ALERT IN RECLINER THIS AM. CALM AND COOPERATIVE WITH ASSESSMENT. I) ADMINISTERED PRESCRIBED MEDS. VSS. REDIRECT AND REORIENT NEEDED. R) COMPLIANT WITH MEDICATIONS. MONITOR FOR SAFETY AND FALLS. P) WILL CONTINUE CURRENT PLAN OF CARE.
[2016-11-17 19:30] VITALS: BP 118/70
--- NOTE | 2016-11-17 21:35 | NUR ---
RECEIVED IN HALLWAY. SITTIN IN RECLINER OUTSIDE OF NURSES STATION. VERY CONFUSED. COOPERATIVE WITH CARE AND ASSESSMENT. NO SIGNS OF AGGRESSION. REDIRECT AND REORIENT NEEDED. CONTINUES TO REST IN RECLINER. CONTINUE PLAN OF CARE.
[2016-11-18 07:44] VITALS: BP 146/87
--- NOTE | 2016-11-18 09:30 | NUR ---
B) PATIENT IS AWAKE AND ALERT AND ORIENTED TO HIMSELF, HE DOES KNOW HE IS LEAVING TODAY, HE IS HAPPY. PATIENT CAN STAND WITH ASSIST TO TRANSFER. I) PROVIDE PRESCRIBED MEDS. R) PATIENT IS COMPLIANT WITH MEDS, CONTINUE WITH D/C, FAXED D/C ORDER AND MAR TO [facility], CALLED REPORT. P) CONTINUE DISCHARGE.
--- NOTE | 2016-11-18 11:00 | NUR ---
PATIENT'S BELONGINGS PACKED AND ACCOUNTED FOR, PATIENT ASSISTED TO VAN BY STAFF. PATIENT IS D/C'D FROM THE UNIT.
--- NOTE | 2016-11-19 10:33 | PN ---
PATIENT:CESIA ADAMSON MEDICAL RECORD: [id number] LOCATION:[facility] ADMISSION DATE: 11/07/16 PROGRESS NOTE DATE OF SERVICE: 11/17/2016 SUBJECTIVE: No new complaint. OBJECTIVE: The patient is continuing to have fluctuating sleeping patterns, but overall is doing quite well. He has been started on thickened liquids due to difficulty with dysphagia. Otherwise, however, he is doing well. He has not shown any behavioral problems, no combativeness nor aggressiveness. On exam, mood is euthymic. Affect is rather constricted. Speech tends to be terse. Content of thought is negative for psychosis or suicidalities. Sensorium unchanged. ASSESSMENT: No change in diagnosis. PLAN: 1. We will continue all current medications and supportive therapy. 2. Anticipate discharge tomorrow. TRANSINT:[id number] Voice Confirmation ID: [id number] DOCUMENT ID: [id number] GINA HERNANDEZ III, MD at 1033 CC: [id number] DICTATION DATE: 11/17/16 1133 SUSPECT ARTIST: 11/17/168 DIS IN 11/18/16 [facility] [address] [place] [address]
== END 2016-11-18 11:05 | DRG 57 ==
LOC: D.PSYCH 17:17
PROVIDERS: Family Medicine; ADMIT Psychiatry & Neurology Psychiatry
DX: G30.9 Alzheimer's disease, unspecified (principal); F02.81 Dementia in other diseases classified elsewhere, unspecified severity, with behavioral disturbance; F32.9 Major depressive disorder, single episode, unspecified; I11.0 Hypertensive heart disease with heart failure; I50.9 Heart failure, unspecified; I25.10 Atherosclerotic heart disease of native coronary artery without angina pectoris; Z86.73 Personal history of transient ischemic attack (TIA), and cerebral infarction without residual deficits; I48.91 Unspecified atrial fibrillation; J44.9 Chronic obstructive pulmonary disease, unspecified; K21.9 Gastro-esophageal reflux disease without esophagitis; E11.9 Type 2 diabetes mellitus without complications; E78.5 Hyperlipidemia, unspecified

== ENCOUNTER → 2016-11-07 | Emergency (ER) | payer MEDICARE, OTHER ==
[2016-10-04 09:36] VITALS: BMI 39.8
[~2016-11-07] MED LIST changes: +ASPIRIN325 MG PO; +ATIVAN1 MG PO; +BISACODYL5 MG PO; +CEFTRIAXONE1 G/VIAL IM; +DEPAKOTE ER250 MG PO; +FLOMAX0.4 MG PO; +GLIPIZIDE10 MG PO; +IPRAT-ALBUT 0.5-3 ML UPD; +LEVAQUIN500 MG PO; +LIPITOR10 MG PO; +MUCUS RELIEF400 MG PO; +NAMENDA5 MG PO; +NORVASC10 MG PO; +NUEDEXTA 20-101 EACH PO; +OYSCO 500+D TAB1 TAB PO; +POT CL MICRO; +TEMAZEPAM30 MG PO; +ULTRAM50 MG PO; +VITAMIN B-12500 MC1 PO; +ZYPREXA5 MG PO
[2016-11-07 13:43] LABS: BASOPHILS 0.2 % (0-2); EOSINOPHILS 2.1 % (0-7); HEMATOCRIT 38.1 % (42.0-54.0); IMMATURE GRANULOCYTES 0.2 % (0-5); LYMPHOCYTES 22.9 % (15-50); MCH 30.9 pg (26.0-34.0); MCHC 31.5 g/dL (31.0-37.0); MCV 98.2 fL (80.0-100.0); MEAN PLATELET VOLUME 11.3 fL (7.4-10.4); MONOCYTES 16.1 % (2-11); NEUTROPHILS 58.5 % (40-80); PLATELET COUNT 103 10x3/uL (130-400); RBC 3.88 10x6/uL (4.20-6.10); RDW 15.6 % (11.5-14.5); WBC 6.2 10x3/uL (4.8-10.8)
[2016-11-07 13:59] LABS: ALBUMIN 2.9 g/dL (3.4-5.0); ANION GAP 13.5 mmol/L (8-16); BILIRUBIN - TOTAL 0.96 mg/dL (0.2-1.3); CALCIUM 8.9 mg/dL (8.5-10.1); CARBON DIOXIDE 30.9 mmol/L (21.0-32.0); CREATININE - SERUM 1.7 mg/dL (0.6-1.3); MAGNESIUM - SERUM 2.2 mg/dL (1.8-2.4); POTASSIUM - SERUM 3.4 mmol/L (3.5-5.1); PROTEIN - SERUM 7.7 g/dL (6.4-8.2)
[2016-11-07 15:34] LABS: APPEARANCE CLEAR (CLEAR); BILIRUBIN NEGATIVE (NEGATIVE); COLOR YELLOW (YELLOW); GLUCOSE NEGATIVE (NEGATIVE); KETONE NEGATIVE (NEGATIVE); LEUKOCYTE ESTERASE NEGATIVE (NEGATIVE); NITRITE NEGATIVE (NEGATIVE); PROTEIN NEGATIVE (NEGATIVE); UROBILINOGEN NORMAL (NORMAL)
[2016-11-07 15:41] LABS: UDS - AMPHET NEGATIVE QUAL (NEGATIVE); UDS - BARB NEGATIVE QUAL (NEGATIVE); UDS - BENZO NEGATIVE QUAL (NEGATIVE); UDS - COCAINE NEGATIVE QUAL (NEGATIVE); UDS - METH NEGATIVE QUAL (NEGATIVE); UDS - OPIATE NEGATIVE QUAL (NEGATIVE); UDS - PCP NEGATIVE QUAL (NEGATIVE); UDS - THC NEGATIVE QUAL (NEGATIVE)
== END ==
LOC: D.ER 12:08
PROVIDERS: Family Medicine; Physician Assistant Medical
DX: F03.90 Unspecified dementia, unspecified severity, without behavioral disturbance, psychotic disturbance, mood disturbance, and anxiety (principal); E11.9 Type 2 diabetes mellitus without complications; I10 Essential (primary) hypertension; Z95.5 Presence of coronary angioplasty implant and graft

== ENCOUNTER 2016-11-26 21:19 | Inpatient (IN) | payer MEDICARE, OTHER ==
[~2016-11-26] VITALS: Ht 172.7 cm; Wt 80.7 kg
--- NOTE | ~2016-11-26 | CN ---
PATIENT NAME:CESIA ADAMSON MEDICAL RECORD: [id number] : 34 LOCATION:. D.2114 ADMIT DATE: 11/27/16 ACCOUNT: [id number] CONSULTING PHYSICIAN: BETZY BARRAZA MD REFERRING PHYSICIAN: ANGELICA BRO MD DATE OF CONSULTATION: 11/27/2016 Cardiology Consultation DIAGNOSES: 1. Congestive heart failure, chronic systolic dysfunction. 2. Shortness of breath. 3. Fluid overload. 4. Hypertension. 5. Hyperlipidemia. 6. Coronary artery disease. HISTORY OF PRESENT ILLNESS: Mr. Adamson presents with congestive heart failure, shortness of breath symptomatology. He has a history of coronary artery disease, but he has had no anginal symptomatology. He has a known cardiomyopathy, ejection fraction in the 35% range with severe mitral regurgitation. He was recently hospitalized for pneumonia, [facility] where he became more short of breath. He has significant pulmonary edema as well. He is now here for fluid overload state. PHYSICAL EXAMINATION: GENERAL APPEARANCE: Well-nourished, well-developed, appears stated age. Level of distress, comfortable. PSYCHIATRIC: Mental status, alert, normal affect. Orientation, oriented to time, place and person. EYES: Lids and conjunctiva, noninjected. No discharge, no pallor. ENT: Lips, teeth, gums, normal dentition. Oropharynx, no cyanosis, no pallor. NECK: Carotid arteries, bilateral normal upstroke, no bruits, no thrills. JUGULAR VEINS: No jugular venous pressure or distention. CERVICAL LYMPH NODES: Nontender, nonenlarged. THYROID: Not enlarged. Nontender. No nodules. LUNGS: Respiratory effort, unlabored. CHEST: Normal curvature. No thoracic deformity. No chest wall tenderness. Percussion, resonant. Auscultation, clear. No wheezes, no rales, no rhonchi. CARDIOVASCULAR: Precordial exam, nondisplaced. No heaves or pericardial thrills. Rate and rhythm, regular. Heart sounds, normal S1, normal S2. No S3, no gallop, no rub. Systolic murmur, not heard. Diastolic murmur, not heard. EXTREMITIES: No cyanosis, no edema. Peripheral pulses, full and equal in all extremities, except as noted. No bruits appreciated. ABDOMEN: Soft, nondistended. Normal aorta. No bruit. Nontender. No masses. Liver, nontender, no hepatomegaly. Spleen, nontender, no splenomegaly. MUSCULOSKELETAL: No joint tenderness. No joint swelling. No erythema. NEUROLOGICAL: Normal gait, normal strength, normal tone. SKIN: Warm and dry. REVIEW OF SYSTEMS: The patient reports easy bruising but reports no swollen glands. The patient reports no fever, no night sweats, no significant weight gain, no significant weight loss. No significant exercise tolerance. The patient reports no dry eyes, no irritation, no vision change. Patient reports no difficulty hearing and no ear pain. Patient reports no frequent nose bleeds CONSULT REPORT [id number] CROSS,CESIA or nose and sinus problems. Patient reports on arm pain on exertion. No shortness of breath while lying down. No history of heart murmur. Patient reports no cough, no wheezing or coughing up blood. Patient reports no abdominal pain, no vomiting. Normal appetite. No diarrhea and not vomiting blood. No nausea and no constipation. Patient reports no incontinence. No difficulty urinating. No hematuria. No increased frequency. Patient reports no muscle aches. No weakness, no arthralgias, no back pain. No swelling of the extremities. Patient reports no abnormal mole, no jaundice, no rashes. Reports no loss of consciousness. No weakness and no numbness. No seizures, dizziness, or headaches. The patient reports no depression, no sleep disturbance, feeling safe in a relationship and no alcohol abuse. Patient reports on fatigue. Reports no runny nose or sinus pressure. No itching, no hives, and no frequent sneezing. OVERALL IMPRESSION: Congestive heart failure, chronic systolic dysfunction with fluid overload. We will start Lasix 40 mg IV q.8 hours along with dobutamine and hopefully this will clear the heart failure symptomatology. Continue the amlodipine and Coreg that he is on. TRANSINT:[id number] Voice Confirmation ID: [id number] DOCUMENT ID: [id number] BETZY BARRAZA MD CC: [id number] DICTATION DATE: 11/27/16 1126 LOG CUTTER: 11/27/16 1331 ADM IN [facility] [address] [place] [address]
[~2016-11-26 21:19] MED LIST changes: +ATIVAN1 MG PO; +CEFTRIAXONE1 G/VIAL IM; +GLIPIZIDE10 MG PO; +IPRAT-ALBUT 0.5-3 ML UPD; +LEVAQUIN500 MG PO; +NORVASC10 MG PO; +OYSCO 500+D TAB1 TAB PO; +POT CL MICRO; +TEMAZEPAM30 MG PO
[2016-11-26 22:03] LABS: APPEARANCE CLEAR (CLEAR); BILIRUBIN NEGATIVE (NEGATIVE); COLOR ORANGE (YELLOW); GLUCOSE NEGATIVE (NEGATIVE); KETONE NEGATIVE (NEGATIVE); LEUKOCYTE ESTERASE NEGATIVE (NEGATIVE); NITRITE NEGATIVE (NEGATIVE); PROTEIN NEGATIVE (NEGATIVE)
[2016-11-26 22:15] LABS: BASOPHILS 0.4 % (0-2); EOSINOPHILS 1.5 % (0-7); HEMATOCRIT 35.1 % (42.0-54.0); HEMOGLOBIN 11.1 g/dL (13.5-17.5); IMMATURE GRANULOCYTES 0.2 % (0-5); LYMPHOCYTES 31.1 % (15-50); MCH 30.8 pg (26.0-34.0); MCHC 31.6 g/dL (31.0-37.0); MCV 97.5 fL (80.0-100.0); MEAN PLATELET VOLUME 10.6 fL (7.4-10.4); MONOCYTES 14.6 % (2-11); NEUTROPHILS 52.2 % (40-80); PLATELET COUNT 98 10x3/uL (130-400); RDW 16.5 % (11.5-14.5); WBC 4.8 10x3/uL (4.8-10.8)
[2016-11-26 22:36] LABS: PLATELET ESTIMATE DECREASED
[2016-11-26 22:39] LABS: ALBUMIN 2.7 g/dL (3.4-5.0); ANION GAP 12.5 mmol/L (8-16); BILIRUBIN - TOTAL 0.8 mg/dL (0.2-1.3); CALCIUM 8.5 mg/dL (8.5-10.1); CARBON DIOXIDE 28.8 mmol/L (21.0-32.0); CREATININE - SERUM 1.3 mg/dL (0.6-1.3); POTASSIUM - SERUM 4.3 mmol/L (3.5-5.1)
[2016-11-26 22:47] LABS: TROPONIN-I 0.059 ng/mL (0.000-0.060)
[2016-11-27] MEDS ORDERED: NUEDEXTA 20-101 EACH PO (02:21)
[2016-11-27] MEDS ORDERED: ZYPREXA5 MG PO (02:21)
[2016-11-27] MEDS ORDERED: GALZIN25 MG PO (02:21)
[2016-11-27] MEDS ORDERED: NORVASC5 MG PO (02:22)
[2016-11-27] MEDS ORDERED: DEPAKOTE ER250 MG PO (02:22)
[2016-11-27] MEDS ORDERED: FUROSEMIDE40 MG PO (02:23)
[2016-11-27] MEDS ORDERED: PERPHENAZINE4 MG PO (02:23)
[2016-11-27 02:25] VITALS: BP 138/95; BMI 39.9
[2016-11-27 04:00] VITALS: BP 120/71
--- NOTE | 2016-11-27 07:30 | NUR ---
RECEIVED PT IN BED EYES CLOSED RESP UNLABORED NAD NOTED
[2016-11-27 08:44] VITALS: BP 138/93
--- NOTE | 2016-11-27 08:56 | NUR ---
MARISSA CESPEDES APN BEEPED FOR DVT COVERAGE OF PATIENT. AWAITING CALL BACK. PATIENT HAS BILATERAL LOWER EDEMA AND IS A FALL RISK.
--- NOTE | 2016-11-27 08:58 | NUR ---
DR MAGAÑA BEEPED FOR DVT COVERAGE FOR PATIENT. PATIENT HAS BILATERAL LOWER EDEMA AND IS AT RISKS FOR FALLS. AWAITING CALL BACK.
--- NOTE | 2016-11-27 09:04 | NUR ---
SARA MATTHEWS RECEIVED FROM DR MAGAÑA
[2016-11-27 10:45] VITALS: Ht 172.7 cm; Wt 80.7 kg
[2016-11-27 12:04] VITALS: BP 110/43
[2016-11-27 14:28] LABS: % SATURATION 19 % (15-55); IRON 91 ug/dl (35-150); TOTAL IRON BIND CAPACITY 472 ug/dl (260-445); UNSAT IRON BIND CAPACITY 381 ug/dl (150-375)
[2016-11-27 15:41] VITALS: BP 146/80
[2016-11-27 18:33] LABS: HEMOGLOBIN A1C 6.1 % (4.8-6.0)
[2016-11-27 19:00] VITALS: BP 113/74
[2016-11-28] VITALS: BP 104/52
[2016-11-28 04:00] VITALS: BP 126/67
[2016-11-28 08:00] VITALS: BP 129/70
--- NOTE | 2016-11-28 10:01 | NUR ---
TELEMETRY CAF. IV PATENT. BED ALRM ON. WILL CONT. PLAN OF CARE.
[2016-11-28 12:00] VITALS: BP 121/71
[2016-11-28 16:00] VITALS: BP 108/66
[2016-11-28 19:00] VITALS: BP 124/72
--- NOTE | 2016-11-28 19:00 | NUR ---
RECEIVED REPORT AND ASSUMED PT CARE FROM DAY SHIFT NURSE @ THIS TIME.
--- NOTE | 2016-11-28 19:22 | NUR ---
SPOUSE IN ROOM WITH PT, PT YELLING AND C/O FEELING VERY ANXIOUS. PT NORMALLY TAKES AT [facility] ATIVAN 1 MG QID PRN ANXIETY AND THIS HAS NOT BEEN REORDERED. PAGE TO DR BRO FOR FURTHER ORDERS. AWAITING RETURN CALL.
--- NOTE | 2016-11-28 19:56 | NUR ---
NO RETURN CALL FROM DR BRO. PM MEDS GIVEN EARLY INCLUDING SLEEP MED TO ASSIST WITH PT'S ANXIETY. PT'S SPOUSE REMAINS AT THE BEDSIDE. WILL MONITOR.
[2016-11-29 04:00] VITALS: BP 113/59
[2016-11-29 05:58] LABS: BASOPHILS 0.2 % (0-2); EOSINOPHILS 2.3 % (0-7); HEMATOCRIT 35.4 % (42.0-54.0); HEMOGLOBIN 11.3 g/dL (13.5-17.5); LYMPHOCYTES 36.2 % (15-50); MCH 30.7 pg (26.0-34.0); MCHC 31.9 g/dL (31.0-37.0); MCV 96.2 fL (80.0-100.0); MEAN PLATELET VOLUME 10.9 fL (7.4-10.4); MONOCYTES 12.7 % (2-11); NEUTROPHILS 48.6 % (40-80); PLATELET COUNT 97 10x3/uL (130-400); RBC 3.68 10x6/uL (4.20-6.10); RDW 16.2 % (11.5-14.5); WBC 4.8 10x3/uL (4.8-10.8)
[2016-11-29 06:14] LABS: ANION GAP 7.7 mmol/L (8-16); CALCIUM 8.5 mg/dL (8.5-10.1); CARBON DIOXIDE 34.6 mmol/L (21.0-32.0); CREATININE - SERUM 1.3 mg/dL (0.6-1.3); POTASSIUM - SERUM 3.3 mmol/L (3.5-5.1)
[2016-11-29 08:22] VITALS: BP 132/78
[2016-11-29 12:10] VITALS: BP 129/72
[2016-11-29 16:15] VITALS: BP 136/68
--- NOTE | 2016-11-29 19:45 | NUR ---
PT HAS BEEN CLEANED UP X 1 FOR BM AND IS YELLING AND CALLING OUT VARIOUS THINGS SUCH "I CAN'T POOP" AND "I CAN'T WALK". CAF PER TELEMETRY. O2 @ 2L/NC WITH RESPS EVEN/NONLABORED. JÚNIOR PIV WITH DOBUTREX @ 17.9ML/HR. BED ALARM ACTIVATED. SEE SHIFT ASSESSMENT. DOOR TO ROOM OPEN WITH CLOSE SUPERVISION. CPOC.
--- NOTE | 2016-11-29 21:14 | NUR ---
HS MEDS GIVEN. LAB DRAWING FOLLOW UP POTASSIUM LEVEL.
[2016-11-29 22:14] VITALS: BP 120/63
--- NOTE | 2016-11-30 00:28 | NUR ---
RECHECK POTASSIUM LEVEL 3.7 NO FURTHER ACTION REQUIRED.
[2016-11-30 00:45] VITALS: BP 142/74
--- NOTE | 2016-11-30 01:00 | NUR ---
PT INCONTINENT OF BM AND URINE. CARE PROVIDED. SKIN CREAM TO SACRAL/COCCYX/PERIANAL AREA. CARDIZEM DRIP INFUSING. PT NOW YELLING OUT AND IS CONFUSED. CPOC. BED ALARM ACTIVATED.
--- NOTE | 2016-11-30 03:27 | NUR ---
PT BACK TO SLEEPING. BED ALARM ACTIVATED. IV CARDIZEM DRIP INFUSING.
--- NOTE | 2016-11-30 05:13 | NUR ---
PORTABLE CXR AND AM LABS COMPLETED.
[2016-11-30 05:47] LABS: BASOPHILS 0.2 % (0-2); EOSINOPHILS 2.3 % (0-7); HEMATOCRIT 35.9 % (42.0-54.0); HEMOGLOBIN 11.4 g/dL (13.5-17.5); IMMATURE GRANULOCYTES 0.2 % (0-5); LYMPHOCYTES 32.1 % (15-50); MCH 30.6 pg (26.0-34.0); MCHC 31.8 g/dL (31.0-37.0); MCV 96.5 fL (80.0-100.0); MEAN PLATELET VOLUME 11.5 fL (7.4-10.4); MONOCYTES 14.7 % (2-11); NEUTROPHILS 50.5 % (40-80); PLATELET COUNT 85 10x3/uL (130-400); RBC 3.72 10x6/uL (4.20-6.10); RDW 16.1 % (11.5-14.5); WBC 5.3 10x3/uL (4.8-10.8)
[2016-11-30 06:10] LABS: ANION GAP 8.1 mmol/L (8-16); CALCIUM 8.3 mg/dL (8.5-10.1); CARBON DIOXIDE 35.3 mmol/L (21.0-32.0); CREATININE - SERUM 1.4 mg/dL (0.6-1.3); POTASSIUM - SERUM 3.4 mmol/L (3.5-5.1)
--- NOTE | 2016-11-30 07:30 | NUR ---
RECEIVED PT IN BED EYES CLOSED RESP UNLABORED
[2016-11-30 08:00] VITALS: BP 143/81; BP 148/63
[2016-11-30 12:00] VITALS: BP 129/71
[2016-11-30 14:15] LABS: FOLATE (FOLIC ACID) - SERUM 5.9 ng/mL (>3.0)
[2016-11-30 16:00] VITALS: BP 126/62
[2016-11-30 16:51] LABS: ALBUMIN 2.8 g/dL (3.4-5.0); BILIRUBIN - DIRECT 0.43 mg/dL (0.00-0.30); BILIRUBIN - INDIRECT 0.4 mg/dL (0.00-1.00); BILIRUBIN - TOTAL 0.83 mg/dL (0.2-1.3); PROTEIN - SERUM 6.6 g/dL (6.4-8.2)
[2016-11-30 19:00] VITALS: BP 119/78
--- NOTE | 2016-11-30 19:45 | NUR ---
PT ALERT/CONFUSED. JUST LEFT [facility] THE NIGHT AND PT IMMEDIATELY BEGAN TO YELL OUT. ORIENTED PATIENT. HE ASKED IF HE COULD HAVE NERVE MEDICINE AND THIS WILL BE PROVIDED. PIV TO LEFT WRIST WITH DOBUTREX @ 17.9ML/HR (5MCG/MG/MIN) INFUSING. BED ALARM ACTIVATED. SR UP X 2. CALL LIGHT IN REACH. .
--- NOTE | 2016-11-30 21:44 | NUR ---
BEDTIME MEDS GIVEN WITH THICKENED WATER. ALSO GAVE ATIVAN FOR PT'S YELLING OUT AND BEING VERBALLY DISRUPTIVE AND HIS RESTORIL TO PROMOTE SLEEP. PT IS CLEAN/DRY AND URINAL HAS BEEN PLACED BEWTWEEN HIS LEGS FOR FREQUENT URINATION. BED ALARM ACTIVATED.SIDERAILS UP X 2 AND CALL LIGHT IN HAND.
[2016-12-01] VITALS: BP 149/82
--- NOTE | 2016-12-01 03:04 | NUR ---
INTERMITENT SMALL SLEEP PERIODS WITH OCCASSIONAL YELLING OUT AND PULLING ALL THE COVERS OFF HIMSELF AND REMOVING HIS TELEMETRY LEADS. MONITOR AND CPOC. BED ALARM ACTIVATED.
--- NOTE | 2016-12-01 03:59 | NUR ---
COMPLETE BED BATH AND LINEN CHANGE PROVIDED. BED ALARM ACTIVATED. CAF PER TELEMETRY.
[2016-12-01 04:00] VITALS: BP 135/77
[2016-12-01 05:41] LABS: BASOPHILS 0.2 % (0-2); EOSINOPHILS 2.6 % (0-7); HEMATOCRIT 34.7 % (42.0-54.0); HEMOGLOBIN 11.2 g/dL (13.5-17.5); IMMATURE GRANULOCYTES 0.2 % (0-5); LYMPHOCYTES 32.9 % (15-50); MCH 30.9 pg (26.0-34.0); MCHC 32.3 g/dL (31.0-37.0); MCV 95.9 fL (80.0-100.0); MEAN PLATELET VOLUME 11.8 fL (7.4-10.4); MONOCYTES 13.4 % (2-11); NEUTROPHILS 50.7 % (40-80); PLATELET COUNT 82 10x3/uL (130-400); RBC 3.62 10x6/uL (4.20-6.10); RDW 16.1 % (11.5-14.5); WBC 5.1 10x3/uL (4.8-10.8)
[2016-12-01 05:54] LABS: ANION GAP 5.3 mmol/L (8-16); CALCIUM 8.3 mg/dL (8.5-10.1); CARBON DIOXIDE 36.1 mmol/L (21.0-32.0); CREATININE - SERUM 1.4 mg/dL (0.6-1.3); POTASSIUM - SERUM 3.4 mmol/L (3.5-5.1)
[2016-12-01 08:57] VITALS: BP 136/69
[2016-12-01 12:20] VITALS: BP 130/63
--- NOTE | 2016-12-01 13:59 | NUR ---
Patient Name: CESIA ADAMSON Admission Status: ER Accout number: [id number] Admission Date: 11-27-2016 : 1932 Admission Diagnosis:HEART FAILURE, UNSPECIFIED Attending: CARRIE Current LOS: 4 Anticipated DC Date: Planned Disposition: Nursing Facility ROSA Cert Primary Insurance: MEDICARE A & B PLANNED EXTERNAL PROVIDER: [facility], [facility] CARE MEDICAID BED Discharge Planning Comments: * Is the patient Alert and Oriented? No 0 * How many steps to enter\exit or inside your home? NONE 0 * PCP DR. BRO 0 * Pharmacy [facility] 0 * Preadmission Environment [facility] 0 * [facility] * ADLs Partial Dependent 0 * Partial ADLs (Assistance needed) Ambulation Bathing Medication Management Toileting Transfers 0 * Equipment Other 0 * Other Equipment ALL EQUIPMENT PROVIDED BY FACILITY 0 * List name and contact numbers for known caregivers / representatives who currently or will assist patient after discharge: RACHEL ADAMSON, SPOUSE, 0 * Community resources currently utilized None 0 * Please name any agencies selected above. NONE 0 * Additional services required to return to the preadmission environment? No 0 * Can the patient safely return to the preadmission environment? Yes 0 * Has this patient been hospitalized within the prior 30 days at any hospital? No 0 CM MET WITH PT AND SPOUSE IN ROOM TO DISCUSS DISCHARGE PLANNING AND NEEDS, PT SLEEPING, SPOUSE ANSWERED ALL QUESTIONS. PT NOW LIVING AT [facility] WHERE PT'S SPOUSE REPORTS PT IS SAFE AND ALL NEEDS ARE MET. PT'S SPOUSE REPORTS PT WILL RETURN TO [facility] REPA[facility]ER CARE AT [facility] AT DISCHARGE. PT HAS BEEN USING WHEELCHAIR AT THE FACILITY AND SHOULD BE ABLE TO RIDE IN VAN FOR TRANSPORT BACK. IMPORTANT MESSAGE FROM MEDICARE PROVIDED AND EXPLAINED. CM CALLED AND SPOKE TO YVONNE, CLINICAL LIAISON FOR [facility] WHO VERIFIED [facility] CARE STATUS AND THAT THEY WILL ACCEPT PT BACK AT DISCHARGE. FOR DISCHARGE, FAX DISCHARGE INFORMATION TO [facility] AT [phone]. NURSE REPORT TO BE CALLED TO [facility] AT [phone]. [facility] TO ARRANGE VAN TRANSPORT. CM TO CONTINUE TO FOLLOW AND ASSIST NEEDED. Hospitality Internship: Bogdan Odell
[2016-12-01 15:48] VITALS: BP 112/43
[2016-12-01 18:39] LABS: APPEARANCE CLOUDY (CLEAR); BILIRUBIN NEGATIVE (NEGATIVE); COLOR DK YELLOW (YELLOW); GLUCOSE NEGATIVE (NEGATIVE); KETONE NEGATIVE (NEGATIVE); LEUKOCYTE ESTERASE NEGATIVE (NEGATIVE); NITRITE NEGATIVE (NEGATIVE); PROTEIN NEGATIVE (NEGATIVE); UROBILINOGEN NORMAL (NORMAL)
[2016-12-01 18:41] LABS: BACTERIA FEW /hpf (NONE SEEN); RED CELLS - URINE >50 /hpf (0-5)
[2016-12-01 19:00] VITALS: BP 98/53
--- NOTE | 2016-12-01 21:16 | NUR ---
PT ALERT/CONFUSED. YELLING OUT. HAS PULLED OUT HIS IV AND IT WILL HAVE TO BE REPLACED IN ORDER TO INFUSE BUMEX DRIP AND DOBUTREX DRIP. NONLABORED RESPIRATIONS ON ROOM AIR. SEE ASSESSMENT, CPOC.
--- NOTE | 2016-12-02 00:35 | NUR ---
PT HAD PULLED OUT IV, RESITED 22G TO RIGHT HAND AND STARTED BUMEX DRIP AT 10ML/HR + RESTARTED DOBUTAMINE AT 5MCG/KG/MIN (17.9ML/HR). GAVE HS MEDS TO PROMOTE SLEEP, COMFORT AND DECREASE HIS LEVEL OF YELLING/CALLING OUT. WILL MONITOR. BED ALARM ACTIVATED, SR UP X 3.
[2016-12-02 06:23] LABS: BASOPHILS 0.4 % (0-2); EOSINOPHILS 2.5 % (0-7); HEMATOCRIT 35.3 % (42.0-54.0); HEMOGLOBIN 11.4 g/dL (13.5-17.5); IMMATURE GRANULOCYTES 0.2 % (0-5); MCH 30.9 pg (26.0-34.0); MCHC 32.3 g/dL (31.0-37.0); MCV 95.7 fL (80.0-100.0); MEAN PLATELET VOLUME 11.8 fL (7.4-10.4); MONOCYTES 12.5 % (2-11); NEUTROPHILS 51.4 % (40-80); PLATELET COUNT 94 10x3/uL (130-400); RBC 3.69 10x6/uL (4.20-6.10); RDW 16.1 % (11.5-14.5); WBC 5.3 10x3/uL (4.8-10.8)
[2016-12-02 06:40] LABS: ANION GAP 8.6 mmol/L (8-16); CALCIUM 8.3 mg/dL (8.5-10.1); CARBON DIOXIDE 34.4 mmol/L (21.0-32.0); CREATININE - SERUM 1.2 mg/dL (0.6-1.3)
[2016-12-02 08:49] VITALS: BP 139/81
--- NOTE | 2016-12-02 09:42 | NUR ---
TELEMETRY CAF HR 78. IV PATENT. RESP UL ON 02 2L NC. BED ALARM ON. WILL CONT. PLAN OF CARE.
[2016-12-02 11:58] VITALS: BP 120/71
[2016-12-02 16:09] VITALS: BP 126/65
[2016-12-02 20:00] VITALS: BP 128/66
--- NOTE | 2016-12-02 20:13 | NUR ---
RESUMED CARE OF PT, LYING IN BED RESPIRATIONS EVEN AND UNLABORED ON 2LPM VIA NC. 70 CAF ON TELEMETRY. RIGHT HAND INFUSING BUMEX @ 10 AND DOBUTAMINE @ 7.9ML/HR. NO NEEDS VOICED AT THIS TIME, CALL LIGHT IN REACH. WILL CONTINUE TO MONITOR. SEE NURSE ASSESSMENT.
[2016-12-03 01:25] VITALS: BP 104/59
--- NOTE | 2016-12-03 03:59 | NUR ---
PROP MAKING SUPERVISOR AT BEDSIDE TO OBTAIN VITALS, CALL LIGHT IN REACH. WILL CONTINUE WITH PLAN OF CARE.
[2016-12-03 04:12] VITALS: BP 114/67
[2016-12-03 06:03] LABS: BASOPHILS 0.2 % (0-2); EOSINOPHILS 2.3 % (0-7); HEMATOCRIT 38.2 % (42.0-54.0); HEMOGLOBIN 12.3 g/dL (13.5-17.5); LYMPHOCYTES 36.3 % (15-50); MCH 30.7 pg (26.0-34.0); MCHC 32.2 g/dL (31.0-37.0); MCV 95.3 fL (80.0-100.0); MEAN PLATELET VOLUME 11.1 fL (7.4-10.4); MONOCYTES 12.8 % (2-11); NEUTROPHILS 48.4 % (40-80); PLATELET COUNT 87 10x3/uL (130-400); RBC 4.01 10x6/uL (4.20-6.10); RDW 15.9 % (11.5-14.5); WBC 4.8 10x3/uL (4.8-10.8)
[2016-12-03 06:25] LABS: CALCIUM 8.5 mg/dL (8.5-10.1); CARBON DIOXIDE 38.1 mmol/L (21.0-32.0); CREATININE - SERUM 1.3 mg/dL (0.6-1.3); POTASSIUM - SERUM 3.1 mmol/L (3.5-5.1)
[2016-12-03 09:21] VITALS: BP 121/56
--- NOTE | 2016-12-03 09:38 | NUR ---
TELEMETRY CAF. RESP UL ON 2L NC. IV PATENT. CALL LIGHT IN REACH. WILL CONT. PLAN OF CARE.
[2016-12-03 12:50] VITALS: BP 107/60
--- NOTE | 2016-12-03 13:53 | NUR ---
Nutrition follow-up: Diet: Low sodium mechanical soft with nectar thick liquids PO intake ~83% average of last 9 meals Labs reviewed +BM wt: 210# RDN following.
[2016-12-03 16:53] VITALS: BP 122/68
--- NOTE | 2016-12-03 19:31 | NUR ---
RESUMED CARE OF PT, LYING IN BED RESPIRATIONS EVEN AND UNLABORED ON 2LPM VIA NC. 79 CAF ON TELEMETRY. RIGHT HAND INFUSING DOBUTAMINE @ 17.9 AND BUMEX @ 10. CALL LIGHT IN REACH AND BED ALARM ON. WILL CONTINUE TO MONITOR. SEE NURSE ASSESSMENT.
[2016-12-03 21:16] VITALS: BP 103/70
--- NOTE | 2016-12-04 03:10 | NUR ---
BED BATH AND LINENS CHANGED. CALL LIGHT IN REACH. WILL CONTINUE TO MONITOR.
[2016-12-04 04:35] VITALS: BP 122/57
[2016-12-04 05:48] LABS: BASOPHILS 0.2 % (0-2); EOSINOPHILS 2.8 % (0-7); HEMATOCRIT 37.9 % (42.0-54.0); HEMOGLOBIN 12.3 g/dL (13.5-17.5); IMMATURE GRANULOCYTES 0.2 % (0-5); LYMPHOCYTES 37.2 % (15-50); MCHC 32.5 g/dL (31.0-37.0); MCV 95.5 fL (80.0-100.0); MEAN PLATELET VOLUME 11.6 fL (7.4-10.4); MONOCYTES 13.5 % (2-11); NEUTROPHILS 46.1 % (40-80); RBC 3.97 10x6/uL (4.20-6.10); WBC 5.6 10x3/uL (4.8-10.8)
[2016-12-04 05:56] LABS: PLATELET COUNT 105 10x3/uL (130-400)
[2016-12-04 06:11] LABS: ANION GAP 8.3 mmol/L (8-16); CALCIUM 8.7 mg/dL (8.5-10.1); CARBON DIOXIDE 36.8 mmol/L (21.0-32.0); CREATININE - SERUM 1.4 mg/dL (0.6-1.3); POTASSIUM - SERUM 3.1 mmol/L (3.5-5.1)
[2016-12-04 08:00] VITALS: BP 120/64
[2016-12-04 11:52] VITALS: BP 127/64
[2016-12-04 14:44] VITALS: BP 126/78
[2016-12-04 19:00] VITALS: BP 124/59
--- NOTE | 2016-12-04 22:28 | NUR ---
INITIAL ROUNDS COMPLETED AT 1920 HRS. PT YELLING FOR WATER. THICKEN WATER GIVEN. PT INCONTINENT OF STOOL AT 2010 HRS. INCONTINENT CARE DONE. ASSESSMENT COMPLETED AT THAT TIME. IV TO R HAND WITH BUMEX AT 10CC/HR AND DOBUTREX AT 5MCQ/KG/MIN (17/9CC/HR). IV PATENT. O2 2LNC. CAF PER CM HR 81. 1+ PEDAL EDEMA. SCABS NOTED TO L SALDANA. BUTTOCKS RED. LUNGS WITH SCATTERED CRACKLES IN BASES BILAT. PT CONFUSED, ORIENTED TO PERSON ONLY. PM MEDS GIVEN. PT INCONTNENT OF URIE AT 2200 HRS. INCONTINENT CARE DONE. PT CURRENTLY RESTING WITH EYES CLOSED. RESP EVEN AND REGULAR. SR UP X3, CALL LIGHT WITHIN REACH AND BED ALARM ON. DOOR OPEN.
[2016-12-05] VITALS: BP 134/74
--- NOTE | 2016-12-05 00:04 | NUR ---
PT RESTING WITH EYES CLOSED. RESP EVEN AND REGULAR. SR UP X2, CALL LIGHT WITHIN REACH AND BED ALARM ON.
--- NOTE | 2016-12-05 01:52 | NUR ---
PT RESTING WITH EYES CLOSED. RESP EVEN AND REGULAR. SR UP X2, CALL LIGHT WITHIN REACH AND BED ALARM ON.
[2016-12-05 04:00] VITALS: BP 101/59
--- NOTE | 2016-12-05 04:24 | NUR ---
PT RESTING WITH EYES CLOSED. RESP EVEN AND REGULAR. SR UP X2, CALL LIGHT WITHIN REACH AND BED ALARM ON.
--- NOTE | 2016-12-05 05:42 | NUR ---
BED BATH DONE, BED LINENS CAHGED. PT TOLERATED ACTIVITY WELL. PT SLEPT WELL DURING THE NIGHT. NEEDS MET; WILL CONTINUE TO MONITOR.
[2016-12-05 06:34] LABS: CALCIUM 8.6 mg/dL (8.5-10.1); CARBON DIOXIDE 34.4 mmol/L (21.0-32.0); CREATININE - SERUM 1.2 mg/dL (0.6-1.3); POTASSIUM - SERUM 3.4 mmol/L (3.5-5.1)
[2016-12-05 06:40] LABS: BASOPHILS 0.4 % (0-2); EOSINOPHILS 2.8 % (0-7); HEMATOCRIT 37.4 % (42.0-54.0); HEMOGLOBIN 12.1 g/dL (13.5-17.5); IMMATURE GRANULOCYTES 0.2 % (0-5); LYMPHOCYTES 37.9 % (15-50); MCH 30.3 pg (26.0-34.0); MCHC 32.4 g/dL (31.0-37.0); MEAN PLATELET VOLUME 11.5 fL (7.4-10.4); MONOCYTES 12.5 % (2-11); NEUTROPHILS 46.2 % (40-80); PLATELET COUNT 116 10x3/uL (130-400); RDW 15.8 % (11.5-14.5); WBC 5.4 10x3/uL (4.8-10.8)
[2016-12-05 06:42] LABS: MCV 93.5 fL (80.0-100.0)
--- NOTE | 2016-12-05 07:30 | NUR ---
RESTING QUIETLY EYES CLOSED RESP UNLABORED NAD NOTED
[2016-12-05 10:02] VITALS: BP 110/52
[2016-12-05 12:00] VITALS: BP 104/48
--- NOTE | 2016-12-05 19:30 | NUR ---
INITIAL ROUNDS COMPLETED. PT RESTING WITH EYES CLOSED. RESP EVEN AND REGULAR. SR UP X2, CALL LIGHT WITHIN REACH.
--- NOTE | 2016-12-05 20:26 | NUR ---
PT INCONTINENT OF STOOL AT 1935 HRS. INCONTNENT CARE DONE. ASESSMENT COMPLETED AT THAT TIME. IV TO R HAND WITH BUMEX AT 10CC/HR AND DOBUTREX AT 17.9CC/HR ( 5MCQ/KG/MIN). IV PATENT. O2 2LNC LUNGS DIMINISHED IN BASES BILAT. CAF PER CM HR 78. BUTT AND SCROTUM RED. WILL CONTINUE TO MONITOR. SR UP X2, CALL LIGHT WITHIN REACH AND BED ALARM ON.
[2016-12-05 20:39] VITALS: BP 117/69
--- NOTE | 2016-12-05 22:38 | NUR ---
PT RESTING WITH EYES CLOSED. RESP EVEN AND REGULAR. SR UP X2, CALL LIGHT WITHIN REACH AND BED ALARM ON.
--- NOTE | 2016-12-05 23:47 | NUR ---
PT AWAKE. URINAL EMPTIED OF 200CC. THICKENED LIQUID GIVNE PER REQUEST. WILL CONTINUE TO MONITOR. SR UP X2, CALL LIGHT WITHIN REACH AND BED ALARM ON.
[2016-12-06] VITALS: BP 123/63
--- NOTE | 2016-12-06 02:23 | NUR ---
PT RESTING WITH EYES CLOSED. RESP EVEN AND REGULAR. SR UP X2, CALL LIGHT WITHIN REACH AND BED ALARM ON.
[2016-12-06 04:00] VITALS: BP 110/53
--- NOTE | 2016-12-06 04:47 | NUR ---
PT YELLING OUT. NECTAR THICK WATER GIVEN PER REQUEST. REPOSITIONED IN BED FOR COMFORT. WILL CONTINUE TO MONITOR.
--- NOTE | 2016-12-06 06:05 | NUR ---
NO CHANGE IN STATUS DURING SHIFT. PT INCONTINENT OF STOOL AND URINE. PT SLEPT FOR A FEW HOURS WITH RESTORIL. AM BATH IN PROGRESS. NEEDS MET; WILL CONTINUE TO MONITOR.
[2016-12-06 07:02] LABS: ANION GAP 8.1 mmol/L (8-16); CALCIUM 8.5 mg/dL (8.5-10.1); CARBON DIOXIDE 35.6 mmol/L (21.0-32.0); CREATININE - SERUM 1.3 mg/dL (0.6-1.3)
[2016-12-06 07:04] LABS: POTASSIUM - SERUM 2.7 mmol/L (3.5-5.1)
--- NOTE | 2016-12-06 07:14 | NUR ---
RECEIVED PT IN BED EYES CLOSED RESP UNLABORED SKIN W/D COLOR WNL NAD NOTED
[2016-12-06 09:46] VITALS: BP 100/51
[2016-12-06 12:26] VITALS: BP 111/70
[2016-12-06 16:06] VITALS: BP 106/54
--- NOTE | 2016-12-06 19:31 | NUR ---
INITIAL ROUNDS COMPLETED. PT YELLING OUT "HELP ME HELP ME!". WHEN ENTERING ROOM PT ASKING FOR MILK. THICKEN MILK GIVEN. WILL CONTINUE TO MONITOR.
[2016-12-06 20:56] VITALS: BP 111/57
--- NOTE | 2016-12-06 21:14 | NUR ---
K+3.3. KCL 40 MEQ IN 240CC OF THICKEN APPLEJUICE GIVEN PER ELECTROLYTE PROTOCOL. PM MEDS GIVEN. PT REPOSITIOED IN BED FOR COMFORT. WILL CONTINUE TO MONITOR. SR UP X2, CALL LIGHT WITHIN REACH AND BED ALARM ON.
--- NOTE | 2016-12-06 22:29 | NUR ---
PT YELLING OUT. NO DISTRESS NOTED. WILL CONTINUE TO MONITOR.
[2016-12-07 00:20] VITALS: BP 115/61
--- NOTE | 2016-12-07 00:46 | NUR ---
ATIVAN 0.5MG PO GIVEN FOR AGITATION. REPOSITIONED IN BED FOR COMFORT. WILL CONTINUE TO MONITOR.
--- NOTE | 2016-12-07 02:20 | NUR ---
PT RESTING WITH EYES CLOSED. RESP EVEN AND REGULAR. SR UP X2, CALL LIGHT WITHIN REACH AND BED ALARM ON.
--- NOTE | 2016-12-07 03:56 | NUR ---
PT REPOSITIONED IN BED FOR COMFORT. WILL CONTINUE TO MONITOR.
--- NOTE | 2016-12-07 05:55 | NUR ---
VSS THROUGHOUT NIGHT. CAF PER CM. PT VERY ANXIOUS TO GO HOME. NEEDS MET; WILL CONTINUE TO MONITOR.
[2016-12-07 06:13] VITALS: BP 121/65
[2016-12-07 06:16] LABS: ANION GAP 9.3 mmol/L (8-16); CALCIUM 8.5 mg/dL (8.5-10.1); CARBON DIOXIDE 34.7 mmol/L (21.0-32.0); CREATININE - SERUM 1.3 mg/dL (0.6-1.3)
[2016-12-07 08:14] VITALS: BP 117/66
--- NOTE | 2016-12-07 10:05 | NUR ---
INCONTURINE. BATH GIVEN BY EVENT LIGHTING SPECIALIST. IV PATENT. TELEMETRY CAF. WILL CONT. PLAN OF CARE.
[2016-12-07 12:12] VITALS: BP 143/74
[2016-12-07 16:54] VITALS: BP 118/67
[2016-12-07 19:30] VITALS: BP 109/63
--- NOTE | 2016-12-07 20:00 | NUR ---
RESTING IN BED. ALERT/SOME INTERMITENT CONFUSION. YELLING OUT FOR NO REASON. SALINE LOCK TO RIGHT HAND. KEEPS URINAL BETWEEN LEGS FOR FREQUENT URINATION. BED ALARM ACTIVATED. SEE SHIFT ASSESSMENT. CPOC.
[2016-12-08 01:36] VITALS: BP 105/82
--- NOTE | 2016-12-08 02:50 | NUR ---
CONTINUES TO CALL OUT, ENOCHM VERBALIZATIONS/YELLING. WILL BE QUIET FOR A SHORT TIME ATER NURSE/E COMMERCE MERCHANDISING COORDINATOR'S TALK TO HIM AND THEN GO BACK TO YELLING.
[2016-12-08 05:29] VITALS: BP 99/59
[2016-12-08 06:31] LABS: ANION GAP 10.8 mmol/L (8-16); CALCIUM 8.8 mg/dL (8.5-10.1); CARBON DIOXIDE 33.5 mmol/L (21.0-32.0); CREATININE - SERUM 1.3 mg/dL (0.6-1.3); POTASSIUM - SERUM 3.3 mmol/L (3.5-5.1)
[2016-12-08 08:21] VITALS: BP 100/54
--- NOTE | 2016-12-08 10:52 | NUR ---
TELEMETRY CAF. AT BS. WILL MONITOR NEEDS.
[2016-12-08 12:54] VITALS: BP 90/47
--- NOTE | 2016-12-08 14:30 | NUR ---
RD follow up note, Pt eating well. N n/v consuming 75-100% of AHA mechanical soft diet with nectar thick liquids. BM on 12/06. wt has decreased significantly while in hosppital likely influenced by fluid. Noted per MD note on 12/07 pt had dana leg edema up to thigh and abd. labs reviewed Elvated bun and creat. dx of renal disease. Meds Bumetanide, Kcl, nystatin, levothyroxine. Last weight documented 12/08 177. Adequate oral intake, diet appropriate, wt change related to fluid. No changees at this time. Will continue to follow and provide recommendations as needed.
[2016-12-08] MEDS ORDERED: BUMEX 1 MG TAB1 MG PO (14:47)
[2016-12-08] MEDS ORDERED: LEVOTHYROXINE100 MC1 IV (14:52)
[2016-12-08] MEDS ORDERED: K-DUR20 MEQ PO (14:57)
[2016-12-08] MEDS ORDERED: SYNTHROID100 MCG PO (15:55)
--- NOTE | 2016-12-08 16:05 | NUR ---
Patient Name: CESIA ADAMSON Admission Status: ER Accout number: [id number] Admission Date: 11-27-2016 : 1932 Admission Diagnosis:HEART FAILURE, UNSPECIFIED Attending: CARRIE Current LOS: 11 Anticipated DC Date: 12-08-2016 Planned Disposition: Nursing Facility [facility] Cert Primary Insurance: MEDICARE A & B PLANNED EXTERNAL PROVIDER: LIYA RARDEN, INTERVENTIONAL RADIOLOGY TECHNOLOGIST [employer] MEDICAID BED Discharge Planning Comments: CM WAS ADVISED THAT PT HAD DISCHARGE ORDERS, SHE HAS CONTACTED THE FACILITY AND PROVIDED NURSE REPORT ALREADY. PT'S SPOUSE HAS BEEN NOTIFIED OF DISCHARGE. CM NOTIFIED YVONNE, CLINICAL LIAISON FOR [facility], OF PT'S DISCHARGE TODAY. CM FAXED DISCHARGE INFORMATION TO [facility] AT [phone]. PT AND SPOUSE NOTIFIED IN ROOM, PT'S SPOUSE IN AGREEMENT WITH DISCHARGE PLAN, IMPORTANT MESSAGE FROM MEDICARE PROVIDED AND EXPLAINED. [facility] TO ARRANGE VAN TRANSPORT. Communications Equipment Operator: Bogdan Odell
--- NOTE | 2016-12-08 16:36 | NUR ---
IV AND TELEMETRY DCD. [facility] BY [facility].
== END 2016-12-08 16:38 | DRG 291 ==
LOC: D.ER 21:19 → D.M2 11-27 01:21
PROVIDERS: Family Medicine; ADMIT Family Medicine
DX: I13.0 Hypertensive heart and chronic kidney disease with heart failure and stage 1 through stage 4 chronic kidney disease, or unspecified chronic kidney disease (principal); I50.23 Acute on chronic systolic (congestive) heart failure; F02.81 Dementia in other diseases classified elsewhere, unspecified severity, with behavioral disturbance; J98.11 Atelectasis; B37.89 Other sites of candidiasis; N18.9 Chronic kidney disease, unspecified; E11.22 Type 2 diabetes mellitus with diabetic chronic kidney disease; I25.10 Atherosclerotic heart disease of native coronary artery without angina pectoris; J44.9 Chronic obstructive pulmonary disease, unspecified; E78.5 Hyperlipidemia, unspecified; G30.9 Alzheimer's disease, unspecified; E03.9 Hypothyroidism, unspecified; D63.8 Anemia in other chronic diseases classified elsewhere; R26.9 Unspecified abnormalities of gait and mobility; I48.2 Chronic atrial fibrillation; F32.9 Major depressive disorder, single episode, unspecified; F41.9 Anxiety disorder, unspecified; K21.9 Gastro-esophageal reflux disease without esophagitis; E87.6 Hypokalemia; K64.9 Unspecified hemorrhoids; Z86.73 Personal history of transient ischemic attack (TIA), and cerebral infarction without residual deficits

== ENCOUNTER 2017-02-14 19:08 | Inpatient (IN) | payer MEDICARE, OTHER ==
[~2017-02-14 19:08] MED LIST changes: +BUMEX 1 MG TAB1 MG PO; +FUROSEMIDE40 MG PO; +K-DUR20 MEQ PO; +LEVOTHYROXINE100 MC1 IV; +PERPHENAZINE4 MG PO; +SYNTHROID100 MCG PO
[2017-02-14 20:02] LABS: BASOPHILS 0.2 % (0-2); EOSINOPHILS 1.9 % (0-7); HEMATOCRIT 34.7 % (42.0-54.0); HEMOGLOBIN 11.2 g/dL (13.5-17.5); IMMATURE GRANULOCYTES 0.2 % (0-5); LYMPHOCYTES 30.4 % (15-50); MCH 31.5 pg (26.0-34.0); MCHC 32.3 g/dL (31.0-37.0); MCV 97.7 fL (80.0-100.0); MONOCYTES 11.8 % (2-11); NEUTROPHILS 55.5 % (40-80); RBC 3.55 10x6/uL (4.20-6.10); RDW 19.6 % (11.5-14.5); WBC 4.2 10x3/uL (4.8-10.8)
[2017-02-14 20:05] LABS: PLATELET COUNT 36 10x3/uL (130-400)
[2017-02-14 20:24] LABS: PLATELET ESTIMATE DECREASED
[2017-02-14 20:36] LABS: ALBUMIN 2.6 g/dL (3.4-5.0); ANION GAP 9.6 mmol/L (8-16); BILIRUBIN - TOTAL 1.26 mg/dL (0.2-1.3); CALCIUM 8.7 mg/dL (8.5-10.1); CARBON DIOXIDE 32.2 mmol/L (21.0-32.0); MAGNESIUM - SERUM 2.4 mg/dL (1.8-2.4); POTASSIUM - SERUM 3.8 mmol/L (3.5-5.1); PROTEIN - SERUM 7.1 g/dL (6.4-8.2); TROPONIN-I 0.047 ng/mL (0.000-0.060)
--- NOTE | 2017-02-14 22:25 | NUR ---
REPORT RECEIVED FROM RUBINA MEYER. ADMITTED PT FROM ER. PT ABLE TO FOLLOW COMMANDS AT TIMES. SPEECH IS GARBLED. ORIENTED TO PERSON AND PLACE. RACHEL ADAMSON WITH HIM. TELEMETRY MONITORING HR 0F 57 HE IS ON DOBUTAMINE DRIP AT 5 MCG/KG/MIN HR FLATUATES BETWEEN 50'S TO 60'S. HE IS ON 2 L O2 VIA NC. BREATHING PATTERN IS SHALLOW. TEMP IS 95.4 F. WARM BLANKETS APPLIED. WILL CONTINUE TO MONITOR. SEE FLOW SHEET FOR COMPLETE ADMISSION ASSESMENT. CALL LIGHT REACH. BED IN LOWEST POSITION.
--- NOTE | 2017-02-14 22:36 | NUR ---
PT LAYING DOWN IN BED, AT BEDSIDE. IV FLUIDS ADMINISTERED PER ORDERS. SEE EMAR FOR DETAILS. DENIES NEEDS AT THIS TIME. CALL LIGHT WITHIN REACH. BED IN LOWEST POSITION. WILL CONTINUE TO MONITOR.
[2017-02-14 23:00] VITALS: BP 125/71
--- NOTE | 2017-02-14 23:03 | NUR ---
CALLED DR. ALVARADO FOR CONSULT WILL WAIT FOR CALL BACK
--- NOTE | 2017-02-14 23:05 | NUR ---
DR. ALVARADO CALLED BACK. REPORT GIVEN. NO NEW ORDERS AT THIS TIME. WILL CONTINUE TO MONITOR.
[2017-02-14 23:15] VITALS: BP 122/76
[2017-02-14 23:30] VITALS: BP 125/79
--- NOTE | 2017-02-14 23:30 | NUR ---
PT LAYING IN BED RESTING, RACHEL AT BEDSIDE. UNABLE TO ASSESS TEMPERATURE. THERMOMETER NOT PICKING UP. WAITING FOR RECTAL THERMOMETER. WILL CONTINUE TO MONITOR.
[2017-02-14 23:45] VITALS: BP 120/78
[2017-02-15] VITALS (53 sets, daily range): BP systolic 96–151; BP diastolic 40–78; BMI 37.7; BMI 38.1
--- NOTE | 2017-02-15 | NUR ---
PT INCONTINENT OF STOOL, DIARRHEA NOTED. PT CLEANED AND COMPLETE BED LINENS CHANGED. ASSESSED RECTAL TEMP, 93.5 F OBTAINED. BEAR HUGGER APPLIED. RACHEL AT BEDSIDE. INTERVENTION FOR APPLYING BEAR HUGGER EXPLAINED TO . CALL LIGHT WITHIN REACH. BED IN LOWEST POSITION. WILL CONTINUE TO MONITOR.
--- NOTE | 2017-02-15 01:32 | NUR ---
PT HR STAYING IN THE 50'S DOBUTAMINE GTT INCREASED TO 7 MCG/KG/MIN. WILL CONTINUE TO MONITOR.
--- NOTE | 2017-02-15 03:00 | NUR ---
REASSESSMENT COMPLETED PER FLOW SHEET. PT LAYING IN BED RESTING. SPEECH IS GARBLED. PT NOT FOLLOWING COMMANDS AT THIS TIME. ATTEMPTED TO OBTAIN AXILLARY TEMPERATURE BUT PT WOULD NOT ALLOW ME TO INSERT THE TEMP PROBE HE FLEXED AT HIS ELBOW AND BROUGHT HIS ARMS TO HIS CHEST, AFTER TELLING HIM TO RELAX HIS ARMS, HE FINALLY DID. TEMPORAL TEMP IS 97 F, WILL CONTINUE WITH BEAR HUGGER AT MEDIUM MODE AND CONTINUE TO MONITOR. SEE FLOW SHEET FOR COMPLETE ASSESSMENT. BED IN LOWEST POSITION. BED ALARM ON. WILL CONTINUE TO MONITOR.
--- NOTE | 2017-02-15 04:45 | NUR ---
TEMPORAL TEMPT IS 97.2 SLOWLY COMING UP. WILL CONTINUE WITH BEAR HUGGER AND CONTINUE TO MONITOR.
[2017-02-15 05:03] LABS: BASOPHILS 0.1 % (0-2); HEMATOCRIT 33.4 % (42.0-54.0); HEMOGLOBIN 10.8 g/dL (13.5-17.5); IMMATURE GRANULOCYTES 0.3 % (0-5); LYMPHOCYTES 17.1 % (15-50); MCH 31.4 pg (26.0-34.0); MCHC 32.3 g/dL (31.0-37.0); MCV 97.1 fL (80.0-100.0); MONOCYTES 9.2 % (2-11); NEUTROPHILS 72.3 % (40-80); RBC 3.44 10x6/uL (4.20-6.10); RDW 19.3 % (11.5-14.5)
[2017-02-15 05:11] LABS: WBC 6.9 10x3/uL (4.8-10.8)
[2017-02-15 05:12] LABS: PLATELET COUNT 41 10x3/uL (130-400)
[2017-02-15 05:19] LABS: ANION GAP 8.5 mmol/L (8-16); CALCIUM 8.8 mg/dL (8.5-10.1); CREATININE - SERUM 1.9 mg/dL (0.6-1.3); POTASSIUM - SERUM 3.5 mmol/L (3.5-5.1)
--- NOTE | 2017-02-15 05:42 | NUR ---
CALLED [facility] TO GET LIST OF MEDS. WILL WAIT FOR FAX
--- NOTE | 2017-02-15 05:53 | NUR ---
RINKMAN ALARMING GOING OFF, SHOWING TACHYCADIA. WENT IN ROOM TO CHECK AND PATIENT WAS MOVING AROUND, PULLING AT HIS ELECTRODES. TEACHING PROVIDED ON IMPORTANCE OF LEAVING THEM ON. ONCE PATIENT WAS CALM AND LEFT THEM ALONE HR WAS BACK IN THE 60'S. WILL CONTINUE TO MONITOR. BED IN LOWEST POSITION.
--- NOTE | 2017-02-15 06:20 | NUR ---
DR. BRO PAGED FOR CRITICAL LABS. WILL WAIT FOR CALL BACK.
--- NOTE | 2017-02-15 06:37 | NUR ---
TEMPORAL TEMP 97.4 BEAR HUGGER CHANGED TO LOW
--- NOTE | 2017-02-15 07:15 | NUR ---
PT LINEN CHANGE, PARTIAL BED BATH, PULLED OUT PIV, ALL LINES (BP, SPO2, TELEMETRY) UNABLE TO REORIENT, YELLS OUT FOR "MOM" VSS, IV REPLACED TO LFA, O2 REPLACED 2L NC, DENIES PAIN, REPOSITIONED, SEE SHIFT ASSESSMENT.
--- NOTE | 2017-02-15 08:18 | NUR ---
WRIST RESTRAINTS APPLIED AT 0800 FOR PULLING AT LINES DESPITE BEING CONCEALED AND UNABLE TO REORIENT, DIAZ INSTERTED VIA STERILE TECHNIQUE, TOLERATED WELL, DRAINING YELLOW URINE,
--- NOTE | 2017-02-15 10:00 | NUR ---
PT YELLING OUT, PULLING RESTRAINTS TO ATTEMPT TO PULL OUT DIAZ, IV, TELEMETRY MONITORING AND O2, REORIENTED WITH NO SUCCESS
--- NOTE | 2017-02-15 10:08 | NUR ---
CALLED [employer] FOR SECOND TIME TO GET CODE STATUS FAXED.
[2017-02-15] MEDS ORDERED: MELATONIN 3 MG1 TAB (10:46)
[2017-02-15] MEDS ORDERED: METOLAZONE5 MG PO (10:46)
--- NOTE | 2017-02-15 11:04 | NUR ---
RECIEVED DNR FROM INTERMEDIATE, VERIFIED WITH DR ESTEBAN, ORDERS FOR PT TO BE DNR, PLACED IN CHART, PSYCH CONSULT, SPOKE WITH AND FAXED TO [facility]
--- NOTE | 2017-02-15 11:34 | NUR ---
SPOKE WITH DR RAMIREZ ABOUT CONSULT, NEW ORDRS FOR HIV, HEPATITS AND PATHOLOGY SMEAR, SPOKE WITH LAB, CALLED FOR HIV CONSENT, NO ANSWER AND NO VOICEMAIL SET UP
--- NOTE | 2017-02-15 12:03 | NUR ---
ATTEMPTED TO CALL AGAIN WITH NO ANSWER, FED LUNCH, ATE MACARONI AND CHEESE THEN SAID "THATS ENOUGH"
--- NOTE | 2017-02-15 12:21 | NUR ---
HERE FOR VISITATION, CONSENTS SIGNED, MADE AWARE OF DRS CONSULTED AND UPDATE GIVEN, ALL QUESTIONS ANSWERED, PT DENIES PAIN, REPOSITIONED, WILL CONTINUE TO MONITOR
--- NOTE | 2017-02-15 14:32 | NUR ---
PT REPOSITIONED, VSS, DENIES PAIN, ORAL CARE PROVIDED, TOOK LACTULOSE WITHOUT DIFFICULTY, WILL CONTINUE TO MONITOR
--- NOTE | 2017-02-15 14:52 | NUR ---
Patient confused, unable to assess dc plans/needs. Attempted to call spouse, Manju - voice mail not set up.
--- NOTE | 2017-02-15 15:00 | NUR ---
PT REPOSITIONED, TOTAL LINEN CHANGE AND BED BATH, VSS, UNABLE TO ANSWER NUMERIC PAIN SCALE, NO SIGNS OF PAIN
--- NOTE | 2017-02-15 17:09 | NUR ---
AT BEDSIDE FOR VISITATION, SPOKE WITH DR RAMIREZ, PT VSS, NO SIGNS OF PAIN, REPOSITIONED, WILL CONTINUE TO MONITOR
--- NOTE | 2017-02-15 19:00 | NUR ---
Received patient resting in bed with full bed bath/linen change just completed, assessment completed per flowsheet. Patient AO x2 with disorientation to time/situation, but answers appropriately to some questions. Eyes PERRLA @ 3mm with brisk response, sclera is slightly reddened. Patient wears glasses, slight hard of hearing. S1/S2 noted NSR on telemetry with HR 77, patient regularly observed Sinus Jaswant with HR 50's. Breathing is even and unlabored on 2L via NC with O2 sat 96%, lung sounds clear bilateral upper and mid with diminished lower. Abdomen is round and soft with bowel sounds active x4, non-tender. Ruffin secured in place, clear yellow urine noted in collection. Full ROM with weakness noted all extremities, generalized swelling bilateral upper with slight pitting edema noted bilateral lower. 22g PIV L forearm, D5W @ 100ml/hr / Dobutamine @ 5mcg (set rate) infusing. Patient denies pain or other needs at this time, all VSS and will continue to monitor.
--- NOTE | 2017-02-15 21:00 | NUR ---
No visitors at this time, all HS meds given without difficulty. Patient repositioned for comfort, encouraged to cough/deep breathe. EKG pads replaced, better signal on monitor. No further needs at this time, all VSS and will continue to monitor.
--- NOTE | 2017-02-15 23:00 | NUR ---
Reassessment completed per flowsheet, patient resting in bed with eyes closed. Patient disoriented to time/situation, responds appropriately to questions with moments of confusion. S1/S2 noted Sinus Jaswant on telemetry with HR 56, irregular. Breathing is shallow and unlabored on 2L via NC with O2 sat 97%, lung sounds clear bilateral upper and mid with diminished lower. All pulses palpable with cap refill < 3 sec, skin is warm/dry to touch with 4+ pitting edema noted bilateral lower extremities. Patient denies pain or other needs at this time, all VSS and will continue to monitor.
[2017-02-16] VITALS (25 sets, daily range): BP systolic 97–129; BP diastolic 51–73
--- NOTE | 2017-02-16 01:00 | NUR ---
Patient resting in bed with eyes open. Patient showing signs of disorietation, attempted to reorient with limited success. Patient disoriented to time/situation, answers some questions appropriately. Patient denies pain or other needs at this time, all VSS and will continue to monitor.
--- NOTE | 2017-02-16 02:55 | NUR ---
Reassessment completed per flowsheet, patient laying in bed with eyes open yelling for his . Patient disoriented to time/place/situation, reorientation ineffective. Eyes PERRLA @ 3mm with brisk response, sclera is white. S1/S2 noted NSR on telemetry with HR 64, irregular. Breathing is shallow and unlabored on 2L via NC with O2 sat 96%, lung sounds clear bilateral upper and mid with diminished lower. Crackles noted upon expiration, cleared when patient coughs. All pulses palpable with cap refill < 3 sec, skin warm/dry to touch. Weakness noted all extremities with 4+ pitting edema noted bilateral lower. Patient repositioned for comfort, heels bridged. No further needs at this time, all VSS and will continue to monitor.
--- NOTE | 2017-02-16 05:00 | NUR ---
Patient laying in bed with eyes open, breathing is slightly shallow and unlabored on 2L via NC with O2 sat 99%. Patient disoriented to time/place/situation, limited success with reorientation. Patient repositioned for comfort, denies pain or other needs at this time. All VSS and will continue to monitor.
[2017-02-16 06:05] LABS: BASOPHILS 0 % (0-2); EOSINOPHILS 2.4 % (0-7); HEMATOCRIT 32.1 % (42.0-54.0); HEMOGLOBIN 10.4 g/dL (13.5-17.5); IMMATURE GRANULOCYTES 0.2 % (0-5); LYMPHOCYTES 22.8 % (15-50); MCH 31.2 pg (26.0-34.0); MCHC 32.4 g/dL (31.0-37.0); MCV 96.4 fL (80.0-100.0); MONOCYTES 15.1 % (2-11); NEUTROPHILS 59.5 % (40-80); RBC 3.33 10x6/uL (4.20-6.10); RDW 19.3 % (11.5-14.5)
[2017-02-16 06:17] LABS: PLATELET COUNT 38 10x3/uL (130-400); WBC 4.6 10x3/uL (4.8-10.8)
[2017-02-16 06:22] LABS: INR 1.55 (0.85-1.17); PROTIME 18.5 SECONDS (11.6-15.0)
[2017-02-16 06:23] LABS: APTT 50.8 SECONDS (22.8-39.4); D-DIMER-QUANTITATIVE 0.48 ug/mLFEU (0.20-0.54)
[2017-02-16 06:34] LABS: ALBUMIN 2.7 g/dL (3.4-5.0); ANION GAP 11.1 mmol/L (8-16); BILIRUBIN - TOTAL 1.47 mg/dL (0.2-1.3); CALCIUM 8.5 mg/dL (8.5-10.1); CARBON DIOXIDE 33.7 mmol/L (21.0-32.0); CREATININE - SERUM 1.8 mg/dL (0.6-1.3); MAGNESIUM - SERUM 2.1 mg/dL (1.8-2.4); PROTEIN - SERUM 6.7 g/dL (6.4-8.2)
[2017-02-16 06:36] LABS: POTASSIUM - SERUM 2.8 mmol/L (3.5-5.1)
[2017-02-16 06:39] LABS: THYROID STIMULATING HORMONE 3.21 uIU/mL (0.36-3.74)
--- NOTE | 2017-02-16 06:39 | NUR ---
Paged Dr Helm regarding critical K+, awaiting call back.
--- NOTE | 2017-02-16 06:52 | NUR ---
Spoke to Louise from [facility], new orders received. Phos added to AM labs, electrolyte replacement protocol ordered. Notified of decreased ammonia level, Dr Helm to address.
--- NOTE | 2017-02-16 07:15 | NUR ---
REPORT RECIEVED FROM FASHION CONSULTANT SALES NURSE. PT RESTING IN BED QUIETLY. FULL ASSESSMENT COMPLETE PER FLOWSHEET. VSS. CALL LIGHT IN REACH. BED IN LOW POSITION. WILL CONT TO ASSESS FOR CHANGES.
--- NOTE | 2017-02-16 09:00 | NUR ---
VSS STABLE AT TH
--- NOTE | 2017-02-16 09:00 | NUR ---
REPOSITIONED IN BED FOR COMFORT AND OFFERED APPLE JUICE. TURNED THE TV ON PER PT'S REQUEST.
--- NOTE | 2017-02-16 10:15 | NUR ---
MORNING MEDICATION GIVEN PER EMAR. NO ISSUES NOTED WITH PO INTAKE.
[2017-02-16 11:18] LABS: HEPATITIS C ANTIBODY 0.2 (0.0-0.9)
--- NOTE | 2017-02-16 12:00 | NUR ---
AT BEDSIDE FOR VISITATION. UPDATE PROVIDED.
--- NOTE | 2017-02-16 12:32 | CN ---
PATIENT NAME:CESIA ADAMSON MEDICAL RECORD: [id number] : 32 LOCATION:[facility] ADMIT DATE: 02/14/17 ACCOUNT: [id number] CONSULTING PHYSICIAN: JOSÉ MIGUEL ALVARDAO MD REFERRING PHYSICIAN: ISSA ESTEBAN MD DATE OF CONSULTATION: 02/15/2017 HISTORY OF PRESENT ILLNESS: An 86-year-old gentleman with history of dementia, very poor historian, and has a known history of coronary artery disease and history of cardiomyopathy, most recent EF 35%. Admitted with mental status changes, having bradycardia. He has been on moderate high dose of beta jagdish secondary to cardiomyopathy. He reports some shortness of breath and feeling better at this point. We are asked to see him concerning his cardiovascular status. PAST MEDICAL HISTORY: 1. History of hypertension. 2. Cardiomyopathy. 3. Dyslipidemia. 4. Hypothyroidism, on replacement. ALLERGIES: PENICILLIN AND SULFA. MEDICATIONS: Synthroid 100 mcg q. day, potassium 20 mEq b.i.d., Bumex 1 mg p.o. b.i.d., Ultram 50 mg q.8 p.r.n., Viibryd 10 mg q. day, Trilafon 4 mg p.o. q. day, Zyprexa 5 mg q.h.s., Namenda 2.5 b.i.d., Depakote 250 daily, amlodipine 5 q. day, Triglide 60 q. day, carvedilol 12.5 q. day, and atorvastatin 10 q. day. SOCIAL HISTORY: Currently resides in a snf. REVIEW OF SYSTEMS: Unobtainable due to the patient factors. PHYSICAL EXAMINATION: GENERAL: Elderly gentleman in no acute distress. VITAL SIGNS: Blood pressure 114/71, pulse 61 underlying atrial fibrillation. HEENT: Normocephalic, atraumatic. NECK: No bruits are noted. HEART: Regular. Appears to be atrial fibrillation with a junctional escape. LUNGS: Fair air excursion. ABDOMEN: Soft, nontender. EXTREMITIES: 2+ edema, 1+ pulses. IMPRESSION: Known cardiomyopathy at this point, given intermittent bradycardia. We will hold beta blockade. Some of his edema may be secondary to third spacing from hypoalbuminemia. We will give IV albumin and loop diuretic. Further recommendations based on clinical course. Thank you for the consultation. TRANSINT:[id number] Voice Confirmation ID: [id number] DOCUMENT ID: [id number] CONSULT REPORT [id number] CESIA ADAMSON,JOSÉ MIGUEL Barrios MD at 1232 CC: [id number] DICTATION DATE: 02/15/17 1007 SECOND VP HR ASSESSMENT: 02/15/17 1230 ADM IN [id number] [place] [address]
--- NOTE | 2017-02-16 13:40 | NUR ---
* Is the patient Alert and Oriented? No 0 * PCP Dr. Rodriguez 0 * Preadmission Environment [facility] 0 * Facility Name [facility] 0 * ADLs Total Dependent 0 * List name and contact numbers for known caregivers / representatives who currently or will assist patient after discharge: Spouse - Manju Adamson [phone] 0 * Additional services required to return to the preadmission environment? No 0 * Can the patient safely return to the preadmission environment? Yes 0 * Has this patient been hospitalized within the prior 30 days at any hospital? No Patient Name: CESIA ADAMSON Admission Status: ER Accout number: [id number] Admission Date: 02-14-2017 : 1932 Admission Diagnosis:SLURRED SPEECH Attending: ISSA ESTEBAN Current LOS: 2 Planned Disposition: [facility] Facility Primary Insurance: MEDICARE A & B Discharge Planning Comments: CM met with spouse @ bedside to assess dc plans/needs. 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 She states he requires assistance with all ADL's, requires a lift to get him from bed to chair. At dc, she plans for him to return to [facility] to a snf bed. Answered questions regarding POC. CM will follow & assist as needed. Yarn Wrapper: Kelly Beasley
--- NOTE | 2017-02-16 14:00 | NUR ---
RESTRAINTS TAKEN OFF AND REPOSITIONED. WATER OFFERED AND ACCEPTED. CALL LIGHT IN REACH. BED IN LOW POSITION.
--- NOTE | 2017-02-16 15:00 | NUR ---
REASSESSMENT COMPLETE PER FLOWSHEET. NO CHANGES NOTED.
--- NOTE | 2017-02-16 16:24 | NUR ---
INCONTINENT CARE PROVIDED. LARGE LIQUID BM NOTED. PARTIAL LINEN CHANGE PROVIDED. DIAZ CARE WITH SURE STEP WIPES.
--- NOTE | 2017-02-16 18:00 | NUR ---
REPOSITIONED FOR COMFORT. CALL LIGHT IN REACH. RESTING WATCHING T.V.
--- NOTE | 2017-02-16 19:15 | NUR ---
REPORT RECEIVED AND CARE ASSUMED. INITIAL SHIFT ASSESSMENT COMPLETED SEE FLOWSHEET. SCD'S APPLIED PER ORDER. PT NOTED TO HAVE PIV BILAT WITH IVF AND IV LINES DATED AND LABELED APPROPRIATE NOT DUE TO BE CHANGED AT THIS TIME. PT BEING MONITORED PER STANDARD CVICU PROTOCOL WITH ALL ALARMS SET AND VERIFIED. NOTE PT IS IN C-AFIB AND HAS A HX OF SUCH. PT REPEATEDLY CALLING OUT. AT TIMES IS ABLE TO STATE HE IS IN THE HOSPITAL BUT DOES NOT KNOW WHY HE IS HERE, STATING HE JUST WANTED TO COME AND IS HAPPY TO SEE US BUT IS READY TO GO HOME. PT NOTED TO TALK ABOUT ITEMS IN THE ROOM NO ONE BUT HE CAN SEE. PT LEFT WITH HOB ELEVATED CALL LIGHT IN HAND WATCHING TV. PT IS IN DIRECT VISION OF NURSES STATION AND BEING MONITORED FOR SAFETY.
[2017-02-16 20:11] LABS: APPEARANCE HAZY (CLEAR); BILIRUBIN NEGATIVE (NEGATIVE); COLOR RED (YELLOW); GLUCOSE NEGATIVE (NEGATIVE); KETONE NEGATIVE (NEGATIVE); NITRITE NEGATIVE (NEGATIVE); PROTEIN TRACE mg/dL (NEGATIVE)
[2017-02-16 20:12] LABS: RED CELLS - URINE >50 /hpf (0-5); WHITE CELLS - URINE 0-5 /hpf (0-5)
--- NOTE | 2017-02-16 21:30 | NUR ---
HS MEDS GIVEN WITHOUT DIFFICULTY NOTED. PT CONTINUES TO CALL OUT INTERMITTENTLY. TOTAL CARE FOR ADLS
--- NOTE | 2017-02-16 21:43 | NUR ---
K+ RESULTS REVIEWED, NO FURTHER ACTION NEEDED
[2017-02-17] VITALS (23 sets, daily range): BP systolic 106–136; BP diastolic 47–83
--- NOTE | 2017-02-17 00:30 | NUR ---
PT IS CURRENTLY ASLEEP WITH REG NONLABORED RESPIRATIONS. CONTINUE TO MONITOR
--- NOTE | 2017-02-17 03:00 | NUR ---
PT AWAKE RESP REG AND NONLABORED. SHIFT REASSESSMENT COMPLETED SEE FLOWSHEET. PT MUCH LESS ANXIOUS AND AGGITATED THAN EARLIER IN THE SHIFT. RESPONSES QUIET AND CALM STILL WITH CONFUSION.
--- NOTE | 2017-02-17 03:27 | NUR ---
RADIOLOGY TECHS AT BEDSIDE FOR AM CXR
--- NOTE | 2017-02-17 04:00 | NUR ---
PT RESUMED SLEEPING. RESP REG AND NONLABORED
--- NOTE | 2017-02-17 05:00 | NUR ---
PT IMCONTINENT OF LARGE LOOSE DIARRHEAL BROWN STOOL. COMPLETE BED BATH GIVEN, F/C CARE DONE ALL LINENS CHANGED.
--- NOTE | 2017-02-17 06:00 | NUR ---
NOTE PT IS BEGINNING TO COUGH UP SOME THICK YELLOW MUCOUS
[2017-02-17 06:02] LABS: BASOPHILS 0.2 % (0-2); HEMATOCRIT 32.1 % (42.0-54.0); HEMOGLOBIN 10.6 g/dL (13.5-17.5); IMMATURE GRANULOCYTES 0.2 % (0-5); LYMPHOCYTES 20.3 % (15-50); MCH 31.4 pg (26.0-34.0); MONOCYTES 18.8 % (2-11); NEUTROPHILS 57.5 % (40-80); RBC 3.38 10x6/uL (4.20-6.10); WBC 5.4 10x3/uL (4.8-10.8)
[2017-02-17 06:23] LABS: PLATELET COUNT 43 10x3/uL (130-400)
--- NOTE | 2017-02-17 06:31 | NUR ---
CRITICAL LAB VALUES FOR PLATLETTS AND AMMONIA CALLED FROM LAB. RESULTS ON CHART, NOT A SIGNIFICANT CHANGE FROM YESTERDAY
[2017-02-17 06:44] LABS: ALBUMIN 2.6 g/dL (3.4-5.0); ANION GAP 9.8 mmol/L (8-16); BILIRUBIN - TOTAL 1.71 mg/dL (0.2-1.3); CALCIUM 8.5 mg/dL (8.5-10.1); CARBON DIOXIDE 32.3 mmol/L (21.0-32.0); CREATININE - SERUM 1.7 mg/dL (0.6-1.3); PHOSPHOROUS 2.7 mg/dL (2.5-4.9); POTASSIUM - SERUM 3.1 mmol/L (3.5-5.1); PROTEIN - SERUM 6.6 g/dL (6.4-8.2)
--- NOTE | 2017-02-17 07:15 | NUR ---
PT ALERT, CONFUSED, SPEECH CLEAR AT TIMES, MOSTLY GARBLED, DENIES PAIN, VSS, PIV TO LEFT FOREARM AND RIGHT UPPER ARM, LINEN CHANGED, PARTIAL BED BATH GIVE, BOWEL MOVEMENT NOTED, SEE SHIFT ASSESSMENT. WILL CONTINUE TO MONITOR
--- NOTE | 2017-02-17 09:00 | NUR ---
PT DID NOT TOLERATE BREAKFAST WELL DESPITE HOB ELEVATED, SPEECH CONSULT ORDERED FOR SWALLOW EVAL, VSS, REPOSITIONED, WILL CONTINUE TO MONITOR
--- NOTE | 2017-02-17 11:12 | NUR ---
PT REPOSITIIONED, VSS, IV LINES AND FLUIDS CHANGED AND DATED, DENIES PAIN, WILL CONTINUE TO MONITOR
--- NOTE | 2017-02-17 13:00 | NUR ---
PT REFUSED LUNCH, VSS, DENIES PAIN, REPOSITIONED, AT BEDSIDE FOR VISITATION, WILL CONTINUE TO MONITOR
--- NOTE | 2017-02-17 15:00 | NUR ---
PT SWALLOW STUDY PER SPEECH, RECOMMENDS NPO, VSS, DENIES ALL NEEDS, K 3.3, WILL CONTINUE WITH KCL RIDERS PER ORDERS, WILL CONTINUE TO MO NITOR
--- NOTE | 2017-02-17 17:23 | HP ---
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 The patient is a resident of a local correction home at [facility]. The patient was found to have slurred speech and would respond to painful stimuli, but could only answer simple questions, significant weakness was noted and dependent edema was present. The patient was evaluated in the Emergency Room and worked up appropriately, was admitted to the hospital due to bradycardia, CHF, and was started on dopamine drip and became combative throughout the night and is now presently in restraint. The patient was evaluated on the floor this morning and further H&P information is obtained from the old chart. PAST MEDICAL HISTORY: Significant for hypertension and coronary artery disease, atrial fibrillation, Alzheimer's, chronic renal insufficiency, CHF, bradycardia, bipolar, dementia, dependent edema, anxiety, hypertension, hyperlipidemia, chronic pain, COPD, hypertriglycerides. PAST SURGICAL HISTORY: Includes bilateral knee surgery, appendectomy, and cataracts. ALLERGIES: PENICILLIN and SULFUR. MEDICATIONS: Listed on the MAR sheet. REVIEW OF SYSTEMS: Difficult to obtain. SOCIAL HISTORY: The patient is a former smoker, does not drink alcohol. REVIEW OF SYSTEMS: Unobtainable other than yes/no. He is coughing and short of breath. PHYSICAL EXAMINATION: VITAL SIGNS: At the time of the history and physical as below. GENERAL: He is a well-developed, well-nourished 86-year-old gentleman that is resting very confused in the ICU. He has a drip going at the present time. The patient has coarse facial features. HEENT: Pupils equal, round and reactive to light. Extraocular movements are intact. He does have evidence of glasses. His mouth has mild tacky mucous membranes. NECK: No nuchal rigidity is noted. LUNGS: Coarse breath sounds heard that are diminished in the bases. HEART: Regular rate and rhythm with a II/ systolic ejection murmur. ABDOMEN: Soft, distended, nontender. Positive bowel sounds. No hepatosplenomegaly, no masses. EXTREMITIES: He has 3+ dependent edema up to the knee region. He is in 4-point restraints due to being combative and pulling out all of his IVs and other things. LABORATORY DATA: He has low platelets of 41, H&H of 10 and 33. His creatinine is elevated at 1.9, BUN is 49, glucose is 114, ammonia level is 132, and has HISTORY AND PHYSICAL [id number] CROSS,CESIA elevated sodium of 149. ASSESSMENT: 1. Mental status changes. 2. Congestive heart failure. 3. Dependent edema. PLAN: We will get psychiatry and cardiovascular evaluation. TRANSINT:[id number] Voice Confirmation ID: [id number] DOCUMENT ID: [id number] ISSA ESTEBAN MD at 1723 CC: [id number] DICTATION DATE: 02/15/17 1105 RANGE MECHANIC: 02/15/17 1119 ADM IN [facility] [address] [place] [address]
--- NOTE | 2017-02-17 17:34 | NUR ---
PT REPOSITIONED, VSS, DENIES PAIN, WILL CONTINUE TO MONITOR
--- NOTE | 2017-02-17 19:00 | NUR ---
REPORT RECEIVED AND CARE ASSUMED. INITIAL SHIFT ASSESSMENT COMPLETED SEE FLOWSHEET. PT REMAINS CONFUSED AND RESTRAINED FOR HIS SAFETY TO PREVENT PULLING AT LINES AND TUBES NECESSARY TO IMPROVE CARE
--- NOTE | 2017-02-17 21:00 | NUR ---
NO VISITORS AT THIS TIME. HS MEDS GIVEN DOCUMENTED ON JUN CRUSHED WITH APPLESAUCE AND THICKENED LIQUIDS RECOREDED ON JUN. NO CHOKING OR COUGHING NOTED WITH ADMINISTRAION. PT HAS HAD AN OCCASIONAL PRODUCTIVE COUGH THICK YELLOW.
--- NOTE | 2017-02-17 23:00 | NUR ---
SHIFT REASSESSMENT GIVEN DOCUMENTED ON JUN. ATIVAN GIVEN EARLIER FOR AGGITATION WAS EFFECTIVE. PT MORE EASILY DIRECTABLE ALTHOUGH SEVERE CONFUSION PERSISTS.
[2017-02-18] VITALS (25 sets, daily range): BP systolic 94–131; BP diastolic 54–81
--- NOTE | 2017-02-18 01:00 | NUR ---
PT RESTING WITH REG NONLABORED RESP. REMAINS TOTAL CARE
--- NOTE | 2017-02-18 03:00 | NUR ---
SHIFT REASSESSMENT COMPLETED SEE FLOWSHEET
[2017-02-18 04:04] LABS: BASOPHILS 0.2 % (0-2); EOSINOPHILS 1.9 % (0-7); HEMATOCRIT 30.6 % (42.0-54.0); IMMATURE GRANULOCYTES 0.2 % (0-5); LYMPHOCYTES 18.4 % (15-50); MCH 31.2 pg (26.0-34.0); MCHC 32.7 g/dL (31.0-37.0); MCV 95.3 fL (80.0-100.0); MEAN PLATELET VOLUME 11.6 fL (7.4-10.4); MONOCYTES 16.6 % (2-11); NEUTROPHILS 62.7 % (40-80); RBC 3.21 10x6/uL (4.20-6.10); RDW 18.8 % (11.5-14.5); WBC 5.7 10x3/uL (4.8-10.8)
[2017-02-18 04:05] LABS: PLATELET COUNT 36 10x3/uL (130-400)
[2017-02-18 04:20] LABS: ALBUMIN 2.4 g/dL (3.4-5.0); ANION GAP 4.7 mmol/L (8-16); BILIRUBIN - TOTAL 1.81 mg/dL (0.2-1.3); CALCIUM 7.9 mg/dL (8.5-10.1); CARBON DIOXIDE 32.6 mmol/L (21.0-32.0); CREATININE - SERUM 1.4 mg/dL (0.6-1.3); POTASSIUM - SERUM 3.3 mmol/L (3.5-5.1); PROTEIN - SERUM 6.1 g/dL (6.4-8.2)
--- NOTE | 2017-02-18 05:25 | NUR ---
REPOSITIONED FOR COMFORT, WILL CON'T TO MONITOR
--- NOTE | 2017-02-18 06:15 | NUR ---
KCL 10MEQ IV HUNG PER ELECTROLYTE PROTCOL
--- NOTE | 2017-02-18 06:15 | NUR ---
PT SUCTIONED DUE TO NOISY ORAL SECRETIONS AND NOT FOLLOWING INSTRUCTIONS TO COUGH AND SPIT IT OUT. NOTE MODERATE AMOUNT OF PURULENT SECRETIONS
--- NOTE | 2017-02-18 07:15 | NUR ---
PT REPOSITIONED, ALERT, CONTINUES WITH CONFUSION, SPEECH OCCASIONALLY CLEAR, MAJORITY GARBLED, O2 2L NC, VSS, PIV TO LFA AND RUE FLUSH WELL, DRESSING CDI, DIAZ DRAINING PINK TINGED URINE, SEE SHIFT ASSESSMENT, SUCTIONING DONE WITH ORAL CARE, WILL CONTINUE TO MONITOR
--- NOTE | 2017-02-18 08:23 | NUR ---
PT DROWSY, UNABLE TO AWAKE ENOUGH TO SAFELY TAKE MEDICATIONS WITHOUT RISK OF ASPIRATION
--- NOTE | 2017-02-18 09:10 | NUR ---
Late Entry for 02/16 @ 1439 Spoke with Anai at [facility] ([place], [place]) to see if they will require at [place] for patient to return. She checked with her nursing administration team and stated they will not require a Zahida at discharge. CM will follow & assist as needed.
--- NOTE | 2017-02-18 09:25 | NUR ---
PT REPOSITIONED, VSS, 3/4 BBAG OF KCL INFUSING
--- NOTE | 2017-02-18 10:39 | NUR ---
Nutrition Follow Up: Chart reviewed. Noted LEAD PAINTER eval rec pt to be NPO with alternate means of nutrition. Wt stable. +BM 02/17/17. Meds and labs reviewed. If pt/family/MD decide to have PEG placed, rec: Jevity 1.0 @ 10 ml/hr. Increase 10 ml every 6-8 hours as tolerated to goal rate of 65 ml/hr. Goal will provide 1654 kcal, 68 g protein and 1281 ml free water. Water flushes 20 ml/hr. RD following.
--- NOTE | 2017-02-18 11:07 | NUR ---
PT REPOSITIONED AND PARTIAL BED BATH LINEN CHANGE, BOWEL MOVEMENT NOTED, SUCTIONING DONE, PT CLENCHES MOUTH, SPOKE WITH DR ESTEBAN ABOUT SWALLOW EVAL RESULTS AND HOLDING MEDS THIS AM AND IN AGREEMENT, HE WILL SPEAK TO ABOUT POSSIBLE PEG
--- NOTE | 2017-02-18 13:07 | NUR ---
SPOKE WITH DR PATEL ABOUT CONSULT FOR PEG, IN ROOM, SAID SHE DOESNT BELIEVE PT WOULD WANT ONE BUT DOES WANT TO DISCUSS OPTIONS, PT REPOSITIONED, VSS, NO SIGNS OF PAIN, AROUSES AND RESPONDS VERBALLY BUT DOES NOT OPEN EYES
--- NOTE | 2017-02-18 14:07 | NUR ---
DR PATEL SPOKE WITH PT , CONSENTS SIGNED FOR PLATELETS AND PEG WITH TIVA TOMORROW AT 0900
[2017-02-18 14:21] LABS: FACTOR VIII - APTT 1:1 60 MIN 30.9 sec (22.9-30.2); FACTOR VIII - APTT 1:1 NP 28.9 sec (22.9-30.2); FACTOR VIII - APTT 1:1 SALINE 86.7 sec (Not Estab.); FACTOR VIII ACTIVITY 75 % (57-163)
--- NOTE | 2017-02-18 15:19 | NUR ---
PT SUCTIONED ORALLY, SMALL AMOUNT OF PINK AND WHITE THICK SECRETIONS SUCTIONED
--- NOTE | 2017-02-18 17:03 | NUR ---
PT REPOSITIONED, VSS, NO SIGNS OF PAIN, CONTINUES NPO, ABLE TO FORM SENTENCES CLEARLY AT TIMES THOUGH SPEECH IS USUALLY GARBLED, WILL CONTINUE TO MONITOR
--- NOTE | 2017-02-18 19:15 | NUR ---
REPORT REC'D, PATIENT'S CARE ASSUMED. ASSESSMENT COMPLETED. SEE FLOW SHEETS FOR ALL FINDINGS. PT AROUSES WITH VOICES, FOLLOWS SIMPLE COMMANDS. CONT AFIB ON CM WITH HR AT 65. LUNG SOUNDS CRACKLES TO ULB WITH DIMINISHED TO LLB. O2SAT 94% ON 2L NC, UNLABORED. PIV INTACT, CLEAN AND DRY INFUSING IV FLUIDS VIA PUMP PER ORDER. DIAZ INTACT TO GRAVITY WITH PINK DRAINAGE TO BAG. PPP. HOB UP. SIDE RAILS UPX 2. CALL LIGHT IN REACH. WILL CONT TO MONITOR.
--- NOTE | 2017-02-18 21:00 | NUR ---
NO VISITORS AT THIS TIME. MOUTH CARE AND ORAL SUCTIONING. PT PATSY WELL. REPOSSITIONED FOR COMFORT. PILLOWS IN USE FOR SUPPORT. HOB UP. CALL LIGHT IN REACH. CPOC.
--- NOTE | 2017-02-18 23:00 | NUR ---
REASSESSMENT COMPLETED. SEE FLOW SHEETS FOR ALL FINDINGS. PT AWAKE FOLLOWS COMMANDS. REORIENTED TO PLACE AND TIME. NO ACUTE SIGNS OF DISTRESS NOTED AT THIS TIME. MOUTH CARE AND ORAL SUCTIONING PROVIDED. REPOSITIONED FOR COMFORT. CALL LIGHT IN REACH. CPOC.
[2017-02-19] VITALS (24 sets, daily range): BP systolic 88–138; BP diastolic 59–77
--- NOTE | 2017-02-19 01:00 | NUR ---
PT RESTING QUIETLY WITHOUT DISTRESS. VSS. CPOC
--- NOTE | 2017-02-19 03:00 | NUR ---
REASSESSMENT COMPLETED. SEE FLOW SHEETS FOR ALL FINDINGS. PT AWAKE, SCREAMING OUT LOUD FOR HELP. REORIENTED TO PLACE, TIME AND SITUATION. VERBALIZES UNDERSTANDING FOR A MINUTE, VSS. ENCOUREGED TO REST AT THIS TIME. REPOSITIONED FOR COMFORT. CALL LIGHT IN REACH. CONT TO MONITOR.
[2017-02-19 05:54] LABS: BASOPHILS 0 % (0-2); EOSINOPHILS 3.1 % (0-7); HEMATOCRIT 35.7 % (42.0-54.0); HEMOGLOBIN 11.5 g/dL (13.5-17.5); LYMPHOCYTES 24.4 % (15-50); MCH 30.7 pg (26.0-34.0); MCHC 32.2 g/dL (31.0-37.0); MCV 95.2 fL (80.0-100.0); MEAN PLATELET VOLUME 12.7 fL (7.4-10.4); MONOCYTES 13.1 % (2-11); NEUTROPHILS 59.4 % (40-80); RBC 3.75 10x6/uL (4.20-6.10); RDW 18.7 % (11.5-14.5)
[2017-02-19 06:00] LABS: PLATELET COUNT 58 10x3/uL (130-400); WBC 3.5 10x3/uL (4.8-10.8)
[2017-02-19 06:26] LABS: ANION GAP 9.3 mmol/L (8-16); CARBON DIOXIDE 30.2 mmol/L (21.0-32.0); CREATININE - SERUM 1.2 mg/dL (0.6-1.3); MAGNESIUM - SERUM 1.8 mg/dL (1.8-2.4); PHOSPHOROUS 2.4 mg/dL (2.5-4.9); POTASSIUM - SERUM 3.5 mmol/L (3.5-5.1)
--- NOTE | 2017-02-19 08:40 | NUR ---
SPOKE WITH DR. PATEL, INFORMED HIM THAT DID NOT WANT THE PEG TUBE PLACED, AND REQUESTED THAT HE HAVE ANOTHER SWALLOW STUDY SINCE HE IS MORE ALERT. DR. PATEL GAVE ORDER TO CANCEL SURGERY.
--- NOTE | 2017-02-19 09:39 | NUR ---
SPOKE WITH DR. ESTEBAN AND INFORMED HIM THAT THE DOES NOT WANT THE PEG TUBE PLACEMENT, AND THAT PATIENT IS MORE AWAKE TODAY BEGGING FOR FOOD. REQUEST FOR SPEECH EVALUATION AGAIN, AND NOTIFIED JHON IN OT.
--- NOTE | 2017-02-19 13:58 | NUR ---
PATIENT IS ALERT AND PLEASANTLY CONFUSED. CALL LIGHT WITHIN REACH, BED IN LOW POSITION. PATIENT YELLS OUT WHEN HE NEEDS SOMETHING INSTEAD OF USING CALL LIGHT.
[2017-02-19 17:11] LABS: PLT ASSOCIATED ANTI-IA/IIA Negative (Negative); PLT ASSOCIATED ANTI-IB/IX Positive (Negative)
--- NOTE | 2017-02-19 19:15 | NUR ---
REPORT RECVD. CARE ASSUMED. INITIAL ASSMNT COMPLETED. SEE FLOWSHEET FOR ALL FINDINGS. AWAKE AND ALERT. CONFUSED AND DISORIENTED. DIFF FINDINGS WORDS AT TIMES. RESP UNLABORED. LUNGS CTA. DIM IN BASES. SPO2 96% ON O2 AT 4 LPM. CAFIB ON THE MONITOR. GENERALIZED EDEMA PRESENT. ABD SOFT WITH HYPO BS X4. TAKING THICKENED LIQUIDS NO DIFF. F/C PATENT. HEMATURIA NOTED FROM TRAUMA WHEN PT PULLED ON F/C. LOOSE RESTRAINTS IN USE FOR SAFETY. TURNED AND REPOSITIONED FOR SKIN INTEGRITY. HOB UP. C/L IN REACH. YELLS OUT FOR HELP FREQUENTLY. CONT CURRENT POC.
--- NOTE | 2017-02-19 23:15 | NUR ---
REASSESSMENT COMPLETED. SEE FLOWSHEET FOR ALL FINDINGS. AWAKE AND ALERT. CONFUSED AND DISORIENTED. DIFF FINDINGS WORDS AT TIMES. RESP UNLABORED. LUNGS CTA. DIM IN BASES. SPO2 96% ON O2 AT 4 LPM. CAFIB ON THE MONITOR. GENERALIZED EDEMA PRESENT. ABD SOFT WITH HYPO BS X4. TAKING THICKENED LIQUIDS NO DIFF. F/C PATENT. HEMATURIA NOTED FROM TRAUMA WHEN PT PULLED ON F/C. LOOSE RESTRAINTS IN USE FOR SAFETY. TURNED AND REPOSITIONED FOR SKIN INTEGRITY. HOB UP. C/L IN REACH. YELLS OUT FOR HELP FREQUENTLY. CONT CURRENT POC.
[2017-02-20] VITALS: BP 110/69
[2017-02-20 01:00] VITALS: BP 105/63
--- NOTE | 2017-02-20 01:15 | NUR ---
TURNED AND REPOSITIONED. INCENTIVE DONE WITH FAIR EFFORT. REMAINS CONFUSED BUT ALERT. VSS. CAFIB ON THE MONITOR. DENIES NEEDS. HOB UP. C/L IN REACH. CONT TO YELL OUT FOR HELP. CONT CURRENT POC.
[2017-02-20 02:00] VITALS: BP 98/41
--- NOTE | 2017-02-20 02:00 | NUR ---
CALLING OUT FOR HELP. WANTED COVERS PULLED UP. REMAINS IN CAFIB ON THE MONITOR. RESP SHALLOW. SPO2 96% ON O2 AT 4 LPM NC. HOB UP. CONT POC.
--- NOTE | 2017-02-20 02:38 | NUR ---
RESPONDING TO HR ALARM.. BELOW 50BPM SPO2 DECREASED. AGONAL RESPIRATIONS NOTED. PT UNRESPONSIVE. HR AGONAL. WITHIN SECONDS, RESP CEASED. HR ASYSTOLE. DR NOTIFIED. REGIONAL CONSTRUCTION MANAGER NOTIFIED. NOTIFIED.
--- NOTE | 2017-02-20 03:35 | NUR ---
AT BEDSIDE. FEATHER DRYING MACHINE OPERATOR NOTIFIED. HOME NOTIFIED.
--- NOTE | 2017-02-20 05:20 | NUR ---
[facility] HOME HERE. AT BEDSIDE. BODY RELEASED. RECORD OF COMPLETED.
--- NOTE | 2017-02-25 12:10 | NUR ---
Per CMS protocol, restraint report logged into data base.
--- NOTE | 2017-03-01 13:13 | EC ---
PATIENT:CESIA ADAMSON DATE OF SERVICE: 02/14/17 SEX: M MEDICAL RECORD: [id number] DATE OF : 32 LOCATION:[place] [address] AGE OF PATIENT: 86 ADMISSION DATE: 02/14/17 REFERRING PHYSICIAN: INTERPRETING PHYSICIAN: JOSÉ MIGUEL ALVARADO MD ECHOCARDIOGRAM REPORT ECHO CHARGES 4 ECHO COMPLETE CLINICAL DIAGNOSIS: CHF ECHOCARDIOGRAPHIC MEASUREMENTS (adult normal given) AC root (d.<3.7cm) 3.2 cm LV Septum d (<1.2 cm> 1.7 cm Valve Excursion 1.9 cm LV Septum (systole) 2.2 cm Left Atria (s.<4.0cm> 5.0 cm LVPW d(<1.2cm) 1.7 cm RV (d.<2.3cm) 3.6 cm LVPW (sytole) 2.4 cm LV diastole(<5.6CM) 5.7 cm MV E-F(>70mm/sec) cm LV systole 3.6 cm LVOT Diameter 1.9 cm MV exc.(>10mm) cm Est.ejection fraction (50-75%) % Pericardial Effusion N DOPPLER: LVIT cm/sec A cm/sec E 97.0 cm/sec LA cm/sec RVSP 29.0 mmHg LVOT 78.0 cm/sec AOP1/2T m/s Asc. Ao 125 cm/sec RVOT 50.0 cm/sec RA cm/sec PA 53.0 cm/sec AV Gradient Peak 6.2 mmHg AV Mean 2.8 mmHg AV Area 1.7 cm MV Gradient Peak 5.1 mmHg MV Mean 2.1 mmHg MV Area cm COMMENTS: Review Consultant: Suellen GEE[employer] Investment Banking Associate: 3 Dr. Archer TAPE# PACS DATE OF SERVICE: 02/15/2017 Adequate 2D echo, color flow imaging and spectral Doppler, and M-mode. LV shows mild global hypo. Overall, function mildly reduced at 40%. Aortic valve sclerosis without stenosis by Doppler interrogation. The left atrium is dilated at 5.0 cm. Mitral valve shows no prolapse. Trace MR. Right-sided chamber grossly is normal. Mild TR by color flow imaging. TRANSINT:[id number] Voice Confirmation ID: [id number] DOCUMENT ID: [id number] 02/19/2017 Edited to correct date of service, [email or web address]. ECHOCARDIOGRAM REPORT [id number] CESIA ADAMSON,JOSÉ MIGUEL Barrios MD at 1313 CC: [id number] DICTATION DATE: 02/16/17 1351 MONEY MARKET CLERK: 02/16/17 1428 DIS IN 02/20/17 [facility] [address] [place] [id number]
== END 2017-02-20 02:38 | DRG 682 ==
LOC: D.ER 19:08 → D.CVICU 21:24
PROVIDERS: Emergency Medicine; Internal Medicine Hematology & Oncology; Internal Medicine Pulmonary Disease; ADMIT Family Medicine
PROC: 0T9B70Z Drainage of Bladder with Drainage Device, Via Natural or Artificial Opening (ICD-10-PCS; principal; 2017-02-15)
DX: N17.9 Acute kidney failure, unspecified (principal); G93.41 Metabolic encephalopathy; I13.0 Hypertensive heart and chronic kidney disease with heart failure and stage 1 through stage 4 chronic kidney disease, or unspecified chronic kidney disease; I50.22 Chronic systolic (congestive) heart failure; F02.81 Dementia in other diseases classified elsewhere, unspecified severity, with behavioral disturbance; I42.9 Cardiomyopathy, unspecified; J98.11 Atelectasis; E87.0 Hyperosmolality and hypernatremia; N18.9 Chronic kidney disease, unspecified; I48.91 Unspecified atrial fibrillation; I25.10 Atherosclerotic heart disease of native coronary artery without angina pectoris; G30.9 Alzheimer's disease, unspecified; F41.9 Anxiety disorder, unspecified; E78.5 Hyperlipidemia, unspecified; J44.9 Chronic obstructive pulmonary disease, unspecified; Z87.891 Personal history of nicotine dependence; Z86.73 Personal history of transient ischemic attack (TIA), and cerebral infarction without residual deficits; E03.9 Hypothyroidism, unspecified; D69.6 Thrombocytopenia, unspecified; N40.0 Benign prostatic hyperplasia without lower urinary tract symptoms; K21.9 Gastro-esophageal reflux disease without esophagitis; E87.6 Hypokalemia; E66.09 Other obesity due to excess calories; Z68.37 Body mass index [BMI] 37.0-37.9, adult